=== PATIENT | female | born 1970 | race Caucasian/White ===

== ENCOUNTER 2017-06-30 14:01 | Observation (INO) ==
[2017-06-30 14:30] LABS: Basophils % 0.3 %; Hematocrit 40.7 % (35.3-44.9); Hemoglobin 13.4 g/dL (11.5-15.4); Immature Granulocytes % 1.3 % (0-4); Lymphocytes % 30.6 %; Mean Corpuscular HGB Conc 32.9 g/dL (31.6-35.5); Mean Corpuscular Hemoglobin 28.6 pg (28.0-33.3); Mean Corpuscular Volume 86.8 fL (83.0-100.0); Mean Platelet Volume 10.2 fL (9.4-12.4); Monocytes # 0.9 K/mcL (0.0-1.3); Monocytes % 7.9 %; Neutrophils # 7.1 K/mcL (1.6-8.9); Nucleated Red Blood Cells 0.2 /100 WBC (0); Platelet Count 303 K/mcL (140-400); Red Blood Count 4.69 M/mcL (3.82-4.97); Red Cell Distribution Width 13.2 % (11.5-14.5); Segmented Neutrophils % 59.9 %
[2017-06-30 14:31] LABS: Lymphocytes # 3.6 K/mcL (0.6-4.6)
[2017-06-30 14:36] LABS: Prothrombin Time 10.4 Seconds (9.4-12.1)
[2017-06-30 14:39] LABS: Activated Partial Thrombo Time 22.5 Seconds (26.0-36.0)
[2017-06-30 14:52] LABS: BUN/Creatinine Ratio 23 (6-26); Blood Urea Nitrogen 22 mg/dL (6-20); Calcium 9.2 mg/dL (8.6-10.3); Carbon Dioxide 27 mEq/L (23-29); Chloride 107 mEq/L (98-107); Glucose 95 mg/dL (70-105); Osmolality,Calculated 295 (280-300); Potassium 3.6 mEq/L (3.5-5.1); Sodium 141 mEq/L (136-145); eGFR For African Americans > 60 (> 60); eGFR For Non-African Americans > 60 (> 60)
[2017-06-30 14:53] LABS: Troponin I < 0.03 ng/mL (< 0.04)
[2017-06-30 15:06] LABS: Thyroid Stimulating Hormone 0.684 mcIU/mL (0.340-5.600)
--- NOTE | 2017-06-30 15:26 | Emergency Department Note ---
Disposition Clinical Impression: Symptomatic bradycardia Disposition: Admitted As Inpatient Referrals: Harvey Huitron MD [Primary Care Provider] - General Adult HPI - General Chief complaint: ED Arrhythmia/Palpitations Stated complaint: bradycardia Time Seen by Provider: 06/30/17 14:09 Source: patient Limitations: no limitations - History of Present Illness Pain Scale: 8 - Related Data Previous Rx's Medication Instructions Recorded Hydrocodone/Acetaminophen [[place] 1 each PO TID #7 tablet 11/27/14 5-325 Tablet] Levofloxacin [Levaquin] 750 mg PO DAILY #7 tablet 03/28/16 Azithromycin [Zithromax] 0 tab PO DAILY #6 tablet 10/30/16 Clindamycin [Cleocin] 450 mg PO TID #63 capsule 01/31/17 Allergies Allergy/AdvReac Type Severity Reaction Status Date / Time ciprofloxacin [From Cipro] Allergy Anaphylaxis Verified 03/26/16 14:05 Hydromorphone [From Dilaudid] Allergy Anaphylaxis Verified 01/30/17 23:14 Sulfa (Sulfonamide Allergy Itching Verified 01/30/17 23:14 Antibiotics) Past Medical History - Past Medical History Medical history: Reports: asthma, coronary artery disease, hyperlipidemia, thyroid disease Surgical history: Reports: Psychiatric history: Reports: depression 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 We had independent face-to- face examination and discussion. The patient was seen with the emergency medicine resident Dr. Jaun Guillen I examined this patient and my medical decision-making was reviewed with the Resident Physician/COMMERCIAL LINES ACCOUNT MANAGER/PA. I agree with the documented findings, disposition and treatment plan as described except to the extent set forth below. Briefly: 47-year-old female history of thyroid. Presents with 1 week of worsening weakness which might pass out with her primary care physician's office was started on Levaquin for "bronchitis". Patient arrives bradycardic and symptomatic heart rate about [address]-T changes. 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 We have provided 30 minutes of critical care service for this patient Time: 15:25 Vital Signs Temperature 98.3 F 06/30/17 14:03 Pulse Rate 46 06/30/17 14:03 Respiratory Rate 16 06/30/17 14:03 Blood Pressure 145/108 06/30/17 14:03 O2 Sat by Pulse Oximetry 99 06/30/17 14:03 Temperature 98.3 F 06/30/17 14:03 Pulse Rate 46 06/30/17 14:03 Respiratory Rate 16 06/30/17 14:03 Blood Pressure 145/108 06/30/17 14:03 O2 Sat by Pulse Oximetry 99 06/30/17 14:03 Oxygen Delivery Oxygen Delivery Room Air Medical Decision Making - Lab Data Result diagrams: 06/30/17 14:14 06/30/17 14:14 Lab Results 06/30/17 06/30/17 06/30/17 Range/Units 14:14 14:14 14:14 WBC 11.9 H D (4.3-11.1) K/mcL RBC 4.69 (3.82-4.97) M/mcL Hgb 13.4 (11.5-15.4) g/dL Hct 40.7 (35.3-44.9) % MCV 86.8 (83.0-100.0) fL MCH 28.6 (28.0-33.3) pg MCHC 32.9 (31.6-35.5) g/dL RDW 13.2 (11.5-14.5) % Plt Count 303 (140-400) K/mcL MPV 10.2 (9.4-12.4) fL Immature Gran % 1.3 (0-4) % Seg Neutrophils % 59.9 % Lymphocytes % 30.6 % Monocytes % 7.9 % Eosinophils % 0.0 % Basophils % 0.3 % Neutrophils # 7.1 (1.6-8.9) K/mcL Lymphocytes # 3.6 (0.6-4.6) K/mcL Monocytes # 0.9 (0.0-1.3) K/mcL Eosinophils # 0.0 (0.0-0.6) K/mcL Basophils # 0.0 (0.0-0.2) K/mcL Nucleated RBCs/100 WBC 0.2 H (0) /100 WBC PT 10.4 (9.4-12.1) Seconds INR 1.0 APTT 22.5 L (26.0-36.0) Seconds Sodium 141 (136-145) mEq/L Potassium 3.6 (3.5-5.1) mEq/L Chloride 107 (98-107) mEq/L Carbon Dioxide 27 (23-29) mEq/L BUN 22 H (6-20) mg/dL Creatinine 0.96 (0.60-1.20) mg/dL Est GFR ( Amer) > 60 (> 60) Est GFR (Non-Af Amer) > 60 (> 60) BUN/Creatinine Ratio 23 (6-26) Glucose 95 (70-105) mg/dL Calculated Osmolality 295 (280-300) Calcium 9.2 (8.6-10.3) mg/dL Troponin I < 0.03 (< 0.04) ng/mL TSH 0.684 (0.340-5.600) mcIU/mL
--- NOTE | 2017-06-30 16:22 | Emergency Department Note ---
Disposition Clinical Impression: Symptomatic bradycardia Disposition: Admitted As Inpatient Condition: Fair Referrals: Harvey Huitron MD [Primary Care Provider] - Forms: ED Satisfaction Letter Time of Disposition: 16:24 General Adult HPI - General Chief complaint: ED Arrhythmia/Palpitations Stated complaint: bradycardia Time Seen by Provider: 06/30/17 14:09 Source: patient Mode of arrival: EMS Limitations: no limitations Nursing Notes Reviewed: Yes Vital Signs Reviewed: Yes - History of Present Illness HPI Narrative: Patient is a 47-year-old female with a past medical history of asthma, CAD, HLD , and thyroid disease presenting to the emergency department with a complaint of weakness/lightheadedness has been going on for the past week. The patient was seen by her primary care provider 5 days ago in which she states that she had lab testing done and was diagnosed with bronchitis and started on steroids and Levaquin. The patient states since that time she continues to feel lightheaded and she feels as if when she is up moving around she is going to pass out. She denies any fevers, chills, chest pain, shortness of breath, cough , abdominal pain, nausea, vomiting, diarrhea or any other associated symptoms at this time. She states that she has no history of known bradycardia. Pain Scale: 8 - Related Data Home Medications Medication Instructions Recorded Confirmed Benzonatate [Tessalon] 200 mg PO TID 06/30/17 06/30/17 Cefdinir [Omnicef] 300 mg PO BID 06/30/17 06/30/17 Citalopram [CeleXA] 20 mg PO DAILY 06/30/17 06/30/17 Ergocalciferol (VITAMIN D2) 50,000 units PO QWEEK 06/30/17 06/30/17 [Drisdol (50,000 Unit)] Gabapentin [Neurontin] 300 mg PO TID 06/30/17 06/30/17 Levothyroxine Sodium [Synthroid] 137 mcg PO QAM 06/30/17 06/30/17 Omeprazole [PriLOSEC] 20 mg PO DAILY 06/30/17 06/30/17 Pravastatin Sodium [Pravachol] 40 mg PO HS 06/30/17 06/30/17 Propranolol [Inderal] 20 mg PO DAILY 06/30/17 06/30/17 Torsemide [Torsemide] 10 mg PO DAILY 06/30/17 06/30/17 predniSONE [PredniSONE] 0 mg PO DAILY 06/30/17 06/30/17 Allergies Allergy/AdvReac Type Severity Reaction Status Date / Time ciprofloxacin [From Cipro] Allergy Anaphylaxis Verified 06/30/17 15:52 Hydromorphone [From Dilaudid] Allergy Anaphylaxis Verified 06/30/17 15:52 Sulfa (Sulfonamide Allergy Itching Verified 06/30/17 15:52 Antibiotics) All systems ED: reviewed and negative except as stated. Review of Systems: As Per HPI Constitutional: Reports: weakness. Denies: fever, chills Cardiovascular: Denies: chest pain, palpitations, dyspnea on exertion, syncope Respiratory: Denies: cough, dyspnea, wheezes Gastrointestinal: Denies: abdominal pain, nausea, vomiting, diarrhea Genitourinary: Denies: urgency, dysuria Musculoskeletal: Denies: back pain, neck pain Integumentary: Denies: rash Neurological: Denies: headache Endocrine: Reports: fatigue Past Medical History - Past Medical History Attestation: Yes The following information was validated with the patient. 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 - Social History Smoking Status: Never smoker Smokeless Tobacco Status: No Alcohol use: Reports: none Drug use: Reports: none Physical Exam CONSTITUTIONAL: Well-appearing; well-nourished; A&O X 3, in no apparent distress HEAD: Normocephalic; atraumatic EYES: PERRL, no scleral icterus NOSE: The nose is normal in appearance without rhinorrhea NECK: No JVD or distended neck veins RESP: Normal chest excursion with respiration; breath sounds clear and equal bilaterally; no wheezes, rhonchi, or rales CARD: Regular rhythm, without murmurs, rub or gallop ABD: Non-distended; non-tender, soft, without rigidity, rebound or guarding,no pulsatile mass CHEST: No pain with palpation SKIN: Normal for age and race; warm and dry without diaphoresis ; no apparent lesions EXTREMITIES: Pulses are 2 plus and equal times 4 extremities, no peripheral edema or calf muscle pain NEURO: Patient is AO 3. GCS of 15. No focal neuro deficits on exam. - General Limitations: no limitations General appearance: alert, in no apparent distress Course Course Narrative: Plan at this time is to perform workup of the patient including a EKG, troponin and chest x-ray. Upon review of patient's prior visit she does not have this bradycardia her rate is normally in the 70s. Her EKG mainly shows sinus bradycardia which is new when compared to her old EKG. we will also order orthostatic vitals. - Reevaluation(s) Reevaluation #1: Patient's workup was essentially normal except for sinus bradycardia as found on EKG. Plan at this time is to admit the patient for symptomatic bradycardia. I discussed the patient's case with Dr. Nguyen and he will see the patient and consult. Patient was accepted by the hospitalist Dr. Perez. Time: 16:24 Vital Signs Temperature 98.3 F 06/30/17 14:03 Pulse Rate 46 06/30/17 14:03 Respiratory Rate 16 06/30/17 14:03 Blood Pressure 145/108 06/30/17 14:03 O2 Sat by Pulse Oximetry 99 06/30/17 14:03 Temperature 98.3 F 06/30/17 14:03 Pulse Rate 46 06/30/17 14:03 Respiratory Rate 16 06/30/17 14:03 Blood Pressure 145/108 06/30/17 14:03 O2 Sat by Pulse Oximetry 99 06/30/17 14:03 Oxygen Delivery Oxygen Delivery Room Air Medical Decision Making - Medical Records Medical records reviewed: Yes I reviewed the patient's medical records. - Lab Data Lab results reviewed: Yes I reviewed the patient's lab results. Result diagrams: 06/30/17 14:14 06/30/17 14:14 Lab Results 06/30/17 06/30/17 06/30/17 Range/Units 14:14 14:14 14:14 WBC 11.9 H D (4.3-11.1) K/mcL RBC 4.69 (3.82-4.97) M/mcL Hgb 13.4 (11.5-15.4) g/dL Hct 40.7 (35.3-44.9) % MCV 86.8 (83.0-100.0) fL MCH 28.6 (28.0-33.3) pg MCHC 32.9 (31.6-35.5) g/dL RDW 13.2 (11.5-14.5) % Plt Count 303 (140-400) K/mcL MPV 10.2 (9.4-12.4) fL Immature Gran % 1.3 (0-4) % Seg Neutrophils % 59.9 % Lymphocytes % 30.6 % Monocytes % 7.9 % Eosinophils % 0.0 % Basophils % 0.3 % Neutrophils # 7.1 (1.6-8.9) K/mcL Lymphocytes # 3.6 (0.6-4.6) K/mcL Monocytes # 0.9 (0.0-1.3) K/mcL Eosinophils # 0.0 (0.0-0.6) K/mcL Basophils # 0.0 (0.0-0.2) K/mcL Nucleated RBCs/100 WBC 0.2 H (0) /100 WBC PT 10.4 (9.4-12.1) Seconds INR 1.0 APTT 22.5 L (26.0-36.0) Seconds Sodium 141 (136-145) mEq/L Potassium 3.6 (3.5-5.1) mEq/L Chloride 107 (98-107) mEq/L Carbon Dioxide 27 (23-29) mEq/L BUN 22 H (6-20) mg/dL Creatinine 0.96 (0.60-1.20) mg/dL Est GFR ( Amer) > 60 (> 60) Est GFR (Non-Af Amer) > 60 (> 60) BUN/Creatinine Ratio 23 (6-26) Glucose 95 (70-105) mg/dL Calculated Osmolality 295 (280-300) Calcium 9.2 (8.6-10.3) mg/dL Troponin I < 0.03 (< 0.04) ng/mL TSH 0.684 (0.340-5.600) mcIU/mL - Radiology Data Radiology results reviewed: Yes I reviewed the patient's radiology results. Chest X-Ray 06/30/17 14:10 IMPRESSION: 1. No active pulmonary disease. D/ / Carter Martinez MD / Carter Martinez MD Interpreting Provider: Carter Martinez MD - EKG Data EKG #1 EKG attestation: Yes I reviewed and interpreted this EKG. EKG results narrative: EKG done at 14:09 shows sinus bradycardia at a rate of 45 bpm. Normal axis. CO is 121, QRS is 100, QT is 4 and 82 and QTc is 436 and these are within normal limits. Patient does have T-wave inversions in several leads however these are unchanged when compared to the EKG done on March 282015.
--- NOTE | 2017-06-30 17:49 | Internal Med History&Physical ---
Date of Encounter: 06/30/17 Time of Encounter: 15:00 Assessment and Plan (1) Symptomatic bradycardia Current visit: Yes Status: Acute Patient with history of coronary arterial disease and hypertension who presents with symptomatic bradycardia. Will monitor on telemetry and pacer pads placed Cardiology has been consulted and appreciate recommendations. (2) Hypothyroid Current visit: Yes Status: Acute TSH 0.684 on admission; continue levothyroxine Qualifiers: Hypothyroidism type: unspecified Qualified Code(s): E03.9 - Hypothyroidism , unspecified (3) GERD (gastroesophageal reflux disease) Current visit: Yes Status: Acute Continue PPI Qualifiers: Esophagitis presence: esophagitis presence not specified Qualified Code(s) : K21.9 - Gastro-esophageal reflux disease without esophagitis (4) HLD (hyperlipidemia) Current visit: Yes Status: Acute Continue statin Qualifiers: Hyperlipidemia type: unspecified Qualified Code(s): E78.5 - Hyperlipidemia , unspecified (5) Mood disorder Current visit: Yes Status: Acute Continue SSRI (6) DVT prophylaxis Current visit: Yes Status: Acute Subcutaneous heparin Internal Medicine - H&P: HPI Chief complaint: Chest tightness/shortness of breath Admitted From: Home Plans for Post Hospital Care: Home History of present illness: Patient is a 47-year-old female with past medical history significant for coronary artery disease, hypertension, hyperlipidemia and hypothyroid who presents to the ER on 06/30/17 due to chest tightness, fatigue and dizziness. Patient reports that her symptoms of been present for the last several days. She states that she has been fatigued with dizziness for the last 3-4 days, chest tightness for the last 2 days and shortness of breath for the last day. She decided to come into the ER for evaluation. The ER, patient was found to be bradycardic with a heart rate in the 40s. Cardiology was consulted from the ER and she will be admitted to medical surgical floor for management of bradycardia. Past Med Surg Social Fam HX - Past Medical History Medical history: asthma, coronary artery disease, hyperlipidemia, thyroid disease Psychiatric history: depression - Past Surgical History Surgical History: - Social History Smoking Status: Never smoker Smokeless Tobacco Status: No Alcohol use: none Drug use: none Internal Medicine - H&P: Meds Benzonatate [Tessalon] 200 mg PO TID 06/30/17 [History] Cefdinir [Omnicef] 300 mg PO BID 06/30/17 [History] Citalopram [CeleXA] 20 mg PO DAILY 06/30/17 [History] Ergocalciferol (VITAMIN D2) [Drisdol (50,000 Unit)] 50,000 units PO QWEEK [History] Gabapentin [Neurontin] 300 mg PO TID 06/30/17 [History] Levothyroxine Sodium [Synthroid] 137 mcg PO QAM 06/30/17 [History] Omeprazole [PriLOSEC] 20 mg PO DAILY 06/30/17 [History] Pravastatin Sodium [Pravachol] 40 mg PO HS 06/30/17 [History] Propranolol [Inderal] 20 mg PO DAILY 06/30/17 [History] Torsemide [Torsemide] 10 mg PO DAILY 06/30/17 [History] predniSONE [PredniSONE] 0 mg PO DAILY 06/30/17 [History] 3 Allergy/AdvReac Type Severity Reaction Status Date / Time ciprofloxacin [From Cipro] Allergy Anaphylaxis Verified 06/30/17 15:52 Hydromorphone [From Dilaudid] Allergy Anaphylaxis Verified 06/30/17 15:52 Sulfa (Sulfonamide Allergy Itching Verified 06/30/17 15:52 Antibiotics) All Systems PM: A 10-system review of systems was performed and is negative for pertinent findings except as documented above in the HPI. - Constitutional Vitals: Temp Pulse Resp BP Pulse Ox 98.3 F 44 18 121/66 95 06/30/17 14:03 06/30/17 16:45 06/30/17 16:21 06/30/17 16:45 06/30/17 16:21 General appearance: Present: A&O X 3, no acute distress, obese - Head Head exam: Present: normocephalic - Eye Eye exam: Present: normal appearance - ENT ENT exam: Present: mucous membranes moist - Respiratory Respiratory exam: Present: CTAB. Absent: accessory muscle use, rales, rhonchi, wheezes - Cardiovascular Cardiovascular exam: Present: bradycardia - GI/Abdominal GI/Abdominal exam: Present: normal bowel sounds, soft, no peritoneal signs. Absent: distended, tenderness - Extremities Exam Extremities exam: Absent: pedal edema - Neurological Exam Neurological exam: Present: oriented X3 - Psychiatric Psychiatric exam: Present: normal mood - Skin Skin exam: Present: normal color Internal Med - H&P Results - Labs CBC & Chem 7: 06/30/17 14:14 06/30/17 14:14
[2017-06-30] MEDS ORDERED: Naloxone 0.4 MG/ML INJ IVP PRN (17:56)
[2017-06-30] MEDS: *HR* Heparin 5,000 UNIT/ML VIAL SQ SCH (21:20)
[2017-06-30] MEDS: Benzonatate 100 MG CAPSULE PO SCH (21:20)
[2017-06-30] MEDS: Gabapentin 300 MG CAPSULE PO SCH (21:20)
[2017-06-30] MEDS ORDERED: Acetaminophen 325 MG TABLET PO PRN (21:33)
[2017-06-30] MEDS: Acetaminophen 325 MG TABLET PO PRN (22:22)
[2017-07-01 05:38] LABS: Basophils % 0.3 %; Eosinophils % 0.3 %; Hematocrit 36.7 % (35.3-44.9); Hemoglobin 11.9 g/dL (11.5-15.4); Immature Granulocytes % 1.3 % (0-4); Mean Corpuscular HGB Conc 32.4 g/dL (31.6-35.5); Mean Corpuscular Hemoglobin 28.4 pg (28.0-33.3); Mean Corpuscular Volume 87.6 fL (83.0-100.0); Mean Platelet Volume 10.4 fL (9.4-12.4); Monocytes # 0.8 K/mcL (0.0-1.3); Monocytes % 7.8 %; Neutrophils # 4.3 K/mcL (1.6-8.9); Nucleated Red Blood Cells 0.3 /100 WBC (0); Platelet Count 261 K/mcL (140-400); Red Blood Count 4.19 M/mcL (3.82-4.97); Red Cell Distribution Width 13.3 % (11.5-14.5); Segmented Neutrophils % 41.3 %
[2017-07-01 05:54] LABS: BUN/Creatinine Ratio 23 (6-26); Blood Urea Nitrogen 22 mg/dL (6-20); Calcium 8.3 mg/dL (8.6-10.3); Carbon Dioxide 27 mEq/L (23-29); Chloride 106 mEq/L (98-107); Glucose 91 mg/dL (70-105); Osmolality,Calculated 295 (280-300); Potassium 2.9 mEq/L (3.5-5.1); Sodium 141 mEq/L (136-145); eGFR For African Americans > 60 (> 60); eGFR For Non-African Americans > 60 (> 60)
[2017-07-01] MEDS: *HR* Heparin 5,000 UNIT/ML VIAL SQ SCH ×3 (05:59→20:40)
--- NOTE | 2017-07-01 06:53 | Electrocardiograph Report ---
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
[2017-07-01 07:40] LABS: Chol/HDL Ratio 2.4 (0-4.9); Cholesterol 103 mg/dL (< 200); HDL Cholesterol 43 mg/dL (40-59); LDL Cholesterol,Calculated 25 mg/dL (0-99); Triglycerides 175 mg/dL (< 150)
[2017-07-01 09:01] LABS: Estimated Average Glucose 111 mg/dl; Hemoglobin A1C 5.5 %
[2017-07-01] MEDS: Torsemide 20 MG TABLET PO SCH (09:19)
[2017-07-01] MEDS: Benzonatate 100 MG CAPSULE PO SCH ×3 (09:19→20:39)
[2017-07-01] MEDS: Gabapentin 300 MG CAPSULE PO SCH ×3 (09:19→20:39)
[2017-07-01] MEDS: Acetaminophen 325 MG TABLET PO PRN (09:19)
--- NOTE | 2017-07-01 10:34 | Internal Med Progress Note ---
<Rmoe Finley - Last Filed: 07/01/17 18:46> Date of Encounter: 07/01/17 Time of Encounter: 08:40 - Assessment and plan (1) Mass of hepatic flexure of colon Current Visit: Yes Status: Acute Assessment and plan: Intractable diarrhea with abdominal pain The patient has been having unexplained GI symptoms CT AP shows Circumferential area thickening in the hepatic flexure of the colon suspicious for possible colon cancer. The results were discusssed with the patient GI has been consulted for further workup (2) Symptomatic bradycardia Current Visit: Yes Status: Acute Assessment and plan: Symptomatic bradycardia, likely secondary to BB use The patient is no longer having chest discomfort, SOB, We have consulted cardiology, held Propanolol (3) Urinary retention Current Visit: Yes Status: Acute Assessment and plan: Urinary retention with discomfort We will insert catheter as needed to void bladder (4) Hypothyroid Current Visit: Yes Status: Chronic Assessment and plan: Hypothyroidism, stable Considered as source for bradycardia TSH 0.68, Free T3 2.36, Free T4 1.16 Mildly low, however unlikely to be symptomatic Qualifiers: Hypothyroidism type: unspecified Qualified Code(s): E03.9 - Hypothyroidism , unspecified (5) GERD (gastroesophageal reflux disease) Current Visit: Yes Status: Acute Assessment and plan: Continue omeprazole Qualifiers: Esophagitis presence: esophagitis presence not specified Qualified Code(s) : K21.9 - Gastro-esophageal reflux disease without esophagitis (6) HLD (hyperlipidemia) Current Visit: Yes Status: Acute Assessment and plan: Continue atorvastatin Qualifiers: Hyperlipidemia type: unspecified Qualified Code(s): E78.5 - Hyperlipidemia , unspecified (7) Mood disorder Current Visit: Yes Status: Acute Assessment and plan: Continue home meds of celexa (8) DVT prophylaxis Current Visit: Yes Status: Acute Assessment and plan: Patient is on SQ Heparin - Subjective Interval history: The patient is resting in bed at time of examination. She does say that she has had trouble urinating overnight, and has been unable to go. This started about one day ago. She says it has been associated with minimal pain. Upon further questioning, the patient does state that she has had abdominal pain for quite some time. She says that for the past 2 months has been having significant abdominal pain with diarrhea which has been previously unexplained. She denies any hematochezia or melena. - Constitutional Vitals: Temp Pulse Resp BP Pulse Ox 97.9 F 92 15 117/67 95 07/01/17 07:58 07/01/17 07:58 07/01/17 07:58 07/01/17 07:58 07/01/17 07:58 General appearance: Present: A&O X 3, no acute distress, obese Exam: Gen.: Vitals noted. No acute distress. AAOx3 with seemingly mild MRDD HEENT: PERRL/EOMI, oropharynx clear, Normocephalic, atraumatic Neck: Supple. No adenopathy. Cardiac: RRR but slow, no murmur, +S1/S2 Pulmonary: CTA bilaterally, no wheezes, rales or rhonchi, equal chest expansion Abdomen: LLQ abdominal tenderness to palpation Back: Nontender throughout. MSK: ROM intact, no joint swelling noted Extremities: no BLE edema, nontender calf, no cyanosis or clubbing Neuro: A&Ox3, moves all extremities, no focal deficits Psych: Appropriate mood and behavior Internal Medicine: Result - Labs CBC & Chem 7: 07/01/17 04:48 07/01/17 04:48 Labs: Short CBC 07/01/17 Range/Units 04:48 WBC 10.3 (4.3-11.1) K/mcL Hgb 11.9 D (11.5-15.4) g/dL Hct 36.7 (35.3-44.9) % Plt Count 261 (140-400) K/mcL Neutrophils # 4.3 (1.6-8.9) K/mcL BMP 07/01/17 04:48 Sodium 141 Potassium 2.9 L Chloride 106 Carbon Dioxide 27 BUN 22 H Creatinine 0.94 Glucose 91 Calcium 8.3 L - ABG Interpretation ABG results: PT/INR, D-dimer PT 10.4 Seconds (9.4-12.1) 06/30/17 14:14 Consult Discharge Plan - Plan Instructions: Hypothyroidism (DC), Bradycardia (DC), Bradycardia (GEN) Referrals: Harvey Huitron MD [Primary Care Provider] - <Kimani Fishman - Last Filed: 07/01/17 19:23> Date of Encounter: 07/01/17 - Assessment and plan (1) Bradycardia, drug induced Current Visit: Yes Status: Acute (2) Hypothyroid Current Visit: Yes Status: Chronic Qualifiers: Hypothyroidism type: acquired Qualified Code(s): E03.9 - Hypothyroidism, unspecified (3) Mass of hepatic flexure of colon Current Visit: Yes Status: Acute (4) GERD (gastroesophageal reflux disease) Current Visit: Yes Status: Acute Qualifiers: Esophagitis presence: without esophagitis Qualified Code(s): K21.9 - Gastro -esophageal reflux disease without esophagitis (5) HLD (hyperlipidemia) Current Visit: Yes Status: Acute Qualifiers: Hyperlipidemia type: unspecified Qualified Code(s): E78.5 - Hyperlipidemia , unspecified (6) Urinary retention Current Visit: Yes Status: Acute - Constitutional Vitals: Temp Pulse Resp BP Pulse Ox 97.7 F 64 15 139/85 97 07/01/17 16:02 07/01/17 16:02 07/01/17 16:02 07/01/17 16:02 07/01/17 16:02 Internal Medicine: Result - Labs CBC & Chem 7: 07/01/17 04:48 07/01/17 04:48 Labs: Short CBC 07/01/17 Range/Units 04:48 WBC 10.3 (4.3-11.1) K/mcL Hgb 11.9 D (11.5-15.4) g/dL Hct 36.7 (35.3-44.9) % Plt Count 261 (140-400) K/mcL Neutrophils # 4.3 (1.6-8.9) K/mcL BMP 07/01/17 04:48 Sodium 141 Potassium 2.9 L Chloride 106 Carbon Dioxide 27 BUN 22 H Creatinine 0.94 Glucose 91 Calcium 8.3 L Urine 07/01/17 Range/Units 13:35 Urine Color Yellow (Yellow) Urine Clarity Clear (Clear) Urine pH 6.5 (5.0-8.0) pH Units Ur Specific [place] 1.014 (1.010-1.025) Urine Protein Negative (Neg-Trace) mg/dL Urine Glucose (UA) Normal (Normal) mg/dL - ABG Interpretation ABG results: PT/INR, D-dimer PT 10.4 Seconds (9.4-12.1) 06/30/17 14:14 - Impressions Impressions Abdomen/Pelvis CT 07/01/17 14:00 IMPRESSION: Circumferential area thickening in the hepatic flexure of the colon suspicious for possible colon cancer. Colonoscopy is recommended for further evaluation. Status post cholecystectomy These results were sent to results communications to be called to a license caregiver D/ / Mahamed Cm MD / Mahamed Cm MD Interpreting Provider: Mahamed Cm MD - Attending Attestation I examined this patient and my medical decision-making was reviewed with the Resident Physician on 07/01/17. I agree with the documented findings, disposition and treatment plan as described except to the extent set forth below. Ms Anthony is currently in observation for abd pain and bradycardia. She remains high risk at this time. Ms Anthony is doing OK. She is still having abd pain. CT shows mass like area in hepatic flexure. No fever or chills. Exam Alert Mild distress Mucus membranes dry Heart reg No wheeze Abd soft - tender RUQ area. I/P 1. Hepatic flexure mass - colonoscopy tomorrow 2. Weight loss 3. Bradycardia due to Inderal Further diagnoses and plan as above.
[2017-07-01 11:09] LABS: Triiodothyronine (T3) Free 2.36 pg/mL (2.50-3.90)
--- NOTE | 2017-07-01 11:13 | Cardiology Consult Note ---
<Anay Valdes - Last Filed: 07/01/17 11:30> Date of Encounter: 07/01/17 Time of Encounter: 09:30 Assessment and Plan (1) Symptomatic bradycardia Current Visit: Yes Status: Acute Per cardiology: -Reports dizziness, fatigue after starting levaquin. -ECG with SB, HR 45. -Telemetry reviewed with average HR 50. -Was on BB for tremors. -Potassium 2.9 today, replaced per primary service. -TTE 09/2012 with LVEF 65%, mild diastolic dysfuction, small muscular VSD with left to right shunt, mildly dilated left atrium, mild TR, no segmental wall motion abnormalities. -09/2012 [facility] with mild, non-obstructive CAD. -Will stop propanolol due to bradycardia. -Continue to monitor telemetry. Discussion w patient/family: The assessment and plan as outlined above was discussed with the patient and/or family members who expressed understanding and agreement. All questions were answered. Thank you for involving us in the care of your patient. Please call with any questions. Discussed and reviewed with . History of Present Illness Consult date: 06/30/17 Requesting physician: Jaun Guillen Consult reason: symptomatic bradycardia Chief complaint: low HR History of present illness: Ms. Anthony is a 47 year old female with a relevant past medical history of hypothyroidism, cervical CA, obesity, GERD, depression, hyperlipidemia, CHF, mild CAD, tremors. Patient presented to [facility] with complaints of low HR at home. Patient reports her home health nurse took her vital signs and noted HR was low and recommended patient be seen in ER. Patient reports was being treated for bronchitis in outpatient setting with levaquin and steroids. Pateint states since starting new medications, she had been dizzy and felt more tired than normal. Reports dizziness and fatigue now. Denies worsening shortness of breath. Denies chest pain/pressure. Past Med Surg Social Fam HX - Past Medical History Attestation: Yes The following information was validated with the patient. Source: patient, old records reviewed Medical history: asthma, coronary artery disease, hyperlipidemia, thyroid disease Psychiatric history: depression - Past Surgical History Surgical History: - Social History Smoking Status: Never smoker Smokeless Tobacco Status: No Alcohol use: none Drug use: none - Family History Father Age: 74 Family Member Ethnicity: Non- Living Status: Still Living Hx Family Cardiac Disorders: Yes Hx Family Respiratory Disorders: No Hx Family Cancer: No Hx Family GI Disorders: No Hx Family Psychosocial Disorders: Yes (depression) Medications and Allergies Benzonatate [Tessalon] 200 mg PO TID 06/30/17 [History] Cefdinir [Omnicef] 300 mg PO BID 06/30/17 [History] Citalopram [CeleXA] 20 mg PO DAILY 06/30/17 [History] Ergocalciferol (VITAMIN D2) [Drisdol (50,000 Unit)] 50,000 units PO QWEEK [History] Gabapentin [Neurontin] 300 mg PO TID 06/30/17 [History] Levothyroxine Sodium [Synthroid] 137 mcg PO QAM 06/30/17 [History] Omeprazole [PriLOSEC] 20 mg PO DAILY 06/30/17 [History] Pravastatin Sodium [Pravachol] 40 mg PO HS 06/30/17 [History] Propranolol [Inderal] 20 mg PO DAILY 06/30/17 [History] Torsemide [Torsemide] 10 mg PO DAILY 06/30/17 [History] predniSONE [PredniSONE] 0 mg PO DAILY 06/30/17 [History] 3 Allergy/AdvReac Type Severity Reaction Status Date / Time ciprofloxacin [From Cipro] Allergy Anaphylaxis Verified 06/30/17 15:52 Hydromorphone [From Dilaudid] Allergy Anaphylaxis Verified 06/30/17 15:52 Sulfa (Sulfonamide Allergy Itching Verified 06/30/17 15:52 Antibiotics) All Systems Review: The remainder of the systems were reviewed and are negative - Constitutional Constitutional: fatigue - Cardiovascular Cardiovascular: as per HPI - Neurological Neurological: dizziness Physical Examination Vital Signs, Last 4 Hours Temp Pulse Resp BP Pulse Ox 07/01/17 07:58 97.9 F 92 15 117/67 95 General: Conversant, No Apparent Distress HEENT: Atraumatic, Normocephaly, Mucus Membranes Moist Neck: No JVD, Normal carotid pulses Cardiac: Reg Rate and Rhythm, Normal S1 and S2, No Murmur Lungs: Normal Breath Sounds, No Wheeze, Rales, Rhonchi Neuro: Alert and responsive, No focal deficits noted Abdomen: Soft, Non-Tender Skin: No rashes noted on visualized skin Musculoskeletal: No Chest Wall Tenderness Extremities: No Clubbing, No Cyanosis, No Edema, Normal Pulses Results 07/01/17 04:48 07/01/17 04:48 Lab Results Impressions Chest X-Ray 06/30/17 14:10 IMPRESSION: 1. No active pulmonary disease. D/ / Carter Martinez MD / Carter Martinez MD Interpreting Provider: Carter Martinez MD Active Medications Acetaminophen (Tylenol) 650 mg PO Q6HR PRN PRN Reason: Pain Stop: 12/30/17 21:34 Last Admin: 07/01/17 09:19 Dose: 650 mg Atorvastatin Calcium (Lipitor) 10 mg PO HS [facility] Stop: 12/30/17 21:01 Last Admin: 06/30/17 21:20 Dose: 10 mg Benzonatate (Tessalon) 200 mg PO TID [facility] Stop: 12/30/17 21:01 Last Admin: 07/01/17 09:19 Dose: 200 mg Citalopram Hydrobromide (Celexa) 20 mg PO DAILY [facility] Stop: 12/31/17 09:01 Last Admin: 07/01/17 09:19 Dose: 20 mg Gabapentin (Neurontin) 300 mg PO TID [facility] Stop: 12/30/17 21:01 Last Admin: 07/01/17 09:19 Dose: 300 mg Heparin Sodium (Porcine) (Heparin) 5,000 unit SQ Q8HCO [facility] Stop: 12/30/17 22:01 Last Admin: 07/01/17 05:59 Dose: 5,000 unit Levothyroxine Sodium (Levothyroxine Sodium) 137 mcg PO QAM [facility] Stop: 12/31/17 09:01 Last Admin: 07/01/17 09:19 Dose: 137 mcg Naloxone HCl (Narcan) 0.4 mg IVP Q2MIN PRN PRN Reason: SEE COMMENTS Stop: 12/30/17 17:57 Omeprazole (Prilosec) 20 mg PO DAILY [facility] PRN Reason: Protocol Stop: 12/31/17 09:01 Last Admin: 07/01/17 09:19 Dose: 20 mg Potassium Chloride (Potassium Chloride) 40 meq PO BID [facility] Stop: 07/01/17 21:01 Last Admin: 07/01/17 09:20 Dose: 40 meq Torsemide (Demadex) 10 mg PO DAILY [facility] Stop: 12/31/17 09:01 Last Admin: 07/01/17 09:19 Dose: 10 mg Laboratory Tests 06/30/17 07/01/17 07/01/17 14:14 04:48 04:48 Hgb 11.9 D Potassium 3.6 2.9 L Creatinine 0.94 Troponin I < 0.03 TSH 0.684 - Imaging and Cardiology Chest Xray: report reviewed Echo: report reviewed Cardiac cath: report reviewed - EKG Interpretation EKG results cardiology: personally reviewed (ECG with sinus bradycardia, HR 45.) , other (Telemetry reviewed with average HR previous 12 hours noted to be 50, SB. PVCs and PACs noted.) Consult Discharge Plan - Plan Instructions: Hypothyroidism (DC), Bradycardia (DC), Bradycardia (GEN) Referrals: Harvey Huitron MD [Primary Care Provider] - <Tyler Nguyen - Last Filed: 07/01/17 15:56> Date of Encounter: 07/01/17 - Attending Attestation I have personally performed a face to face evaluation on this patient. I have reviewed and agree with the care plan. History and Exam by me shows: 47-year-old female with history of multiple comorbidities presents today with bradycardia associated with weakness. Patient is on propranolol which has been started a few months ago for essential tremors. She has no conduction abnormalities or blocks noticed on telemetry. Her average heart rate is 50 bpm. Last ejection fraction was preserved in 2012 at [place] left heart catheter was unremarkable. Will hold propanolol at this time evaluate her heart rate overnight on telemetry. May consider restarting an alternative versus half her regular dose of propanolol upon discharge with a Holter monitor for follow-up Assessment and Plan Discussion w patient/family: The assessment and plan as outlined above was discussed with the patient and/or family members who expressed understanding and agreement. All questions were answered. Thank you for involving us in the care of your patient. Please call with any questions. History of Present Illness History of present illness: Ms. Anthony is a 47 year old female All Systems Review: The remainder of the systems were reviewed and are negative Physical Examination Vital Signs, Last 4 Hours Temp Pulse Resp BP Pulse Ox 07/01/17 11:58 97.9 F 96 15 121/81 97 Results 07/01/17 04:48 07/01/17 04:48 Lab Results 07/01/17 07/01/17 07/01/17 04:48 04:48 10:14 WBC 10.3 Hgb 11.9 D Hct 36.7 Plt Count 261 Sodium 141 Potassium 2.9 L Chloride 106 Carbon Dioxide 27 BUN 22 H Creatinine 0.94 Glucose 91 Calcium 8.3 L Magnesium 2.1
[2017-07-01 12:45] LABS: Magnesium 2.1 mg/dL (1.6-2.6)
[2017-07-01 14:12] LABS: Bilirubin,Urine Negative (Negative); Blood,Urine Negative (Negative); Clarity,Urine Clear (Clear); Color,Urine Yellow (Yellow); Glucose,Urine (UA) Normal (Normal); Ketones,Urine Negative (Negative); Leukocyte Esterase,Urine Small (Negative); Nitrite,Urine Negative (Negative); PH,Urine 6.5 pH Units (5.0-8.0); Protein,Urine Negative (Neg-Trace); Specific Gravity,Urine 1.014 (1.010-1.025); Urobilinogen,Urine Normal (Normal)
[2017-07-01 14:17] LABS: Bacteria,Urine None Seen per hpf (None-Few); Hyaline Casts,Urine None Seen per lpf (None-Few); Squamous Epithelial Cell,Urine Moderate per lpf (None-Few); WBC,Urine 0-3 per hpf (0-3)
[2017-07-01] MEDS ORDERED: SODIUM CHLORIDE/NAHCO3/KCL/PEG 4,000 ML SOLN.RECON PO ONE (16:00)
[2017-07-01 17:09] LABS: Adenovirus F 40/41 PCR Not detected (Not detect); Astrovirus PCR Not detected (Not detect); C.difficile Toxin A/B by PCR Not detected (Not detect); Campylobacter by PCR Not detected (Not detect); Cryptosporidium by PCR Not detected (Not detect); Cyclospora cayetanensis PCR Not detected (Not detect); E. coli O157 by PCR Not detected (Not detect); Entamoeba histolytica PCR Not detected (Not detect); Enteroaggregative E.coli(EAEC) Not detected (Not detect); Enteropathogenic E.coli(EPEC) Not detected (Not detect); Enterotoxigenic E.coli (ETEC) Not detected (Not detect); Giardia lamblia PCR Not detected (Not detect); Norovirus GI/GII PCR Not detected (Not detect); Plesiomonas shigelloides PCR Not detected (Not detect); Rotavirus A PCR Not detected (Not detect); Salmonella PCR Not detected (Not detect); Sapovirus PCR Not detected (Not detect); Shig/EnteroinvasiveE coli EIEC Not detected (Not detect); Shigalike tox-prod E coli STEC Not detected (Not detect); Vibrio PCR Not detected (Not detect); Vibrio cholerae PCR Not detected (Not detect); Yersinia enterocolitica PCR Not detected (Not detect)
[2017-07-02] MEDS: *HR* Heparin 5,000 UNIT/ML VIAL SQ SCH ×3 (06:19→21:22)
[2017-07-02 07:31] LABS: Basophils % 0.4 %; Eosinophils # 0.1 K/mcL (0.0-0.6); Eosinophils % 0.8 %; Hematocrit 38.4 % (35.3-44.9); Hemoglobin 12.5 g/dL (11.5-15.4); Immature Granulocytes % 1.2 % (0-4); Lymphocytes % 47.6 %; Mean Corpuscular HGB Conc 32.6 g/dL (31.6-35.5); Mean Corpuscular Hemoglobin 28.3 pg (28.0-33.3); Mean Corpuscular Volume 87.1 fL (83.0-100.0); Mean Platelet Volume 10.1 fL (9.4-12.4); Monocytes # 0.6 K/mcL (0.0-1.3); Monocytes % 7.2 %; Neutrophils # 3.6 K/mcL (1.6-8.9); Platelet Count 236 K/mcL (140-400); Red Blood Count 4.41 M/mcL (3.82-4.97); Red Cell Distribution Width 13.4 % (11.5-14.5); Segmented Neutrophils % 42.8 %
[2017-07-02 07:54] LABS: BUN/Creatinine Ratio 18 (6-26); Blood Urea Nitrogen 18 mg/dL (6-20); Calcium 8.8 mg/dL (8.6-10.3); Carbon Dioxide 29 mEq/L (23-29); Chloride 103 mEq/L (98-107); Glucose 89 mg/dL (70-105); Osmolality,Calculated 289 (280-300); Potassium 3.6 mEq/L (3.5-5.1); Sodium 139 mEq/L (136-145); eGFR For African Americans > 60 (> 60); eGFR For Non-African Americans > 60 (> 60)
[2017-07-02] MEDS: Torsemide 20 MG TABLET PO SCH (10:06)
[2017-07-02] MEDS: Benzonatate 100 MG CAPSULE PO SCH ×3 (10:07→21:22)
[2017-07-02] MEDS: Gabapentin 300 MG CAPSULE PO SCH ×3 (10:08→21:22)
--- NOTE | 2017-07-02 10:26 | Cardiology Progress Note ---
Date of Encounter: 07/02/17 Time of Encounter: 08:30 Assessment and Plan (1) Symptomatic bradycardia Current Visit: Yes Status: Acute Per cardiology: -Reports dizziness, fatigue after starting levaquin. Denies dizziness today. -Reports feeling generally weak. -ECG with SB, HR 45. -Telemetry reviewed with average HR 51. -Was on BB for tremors, now off. -TTE 09/2012 with LVEF 65%, mild diastolic dysfuction, small muscular VSD with left to right shunt, mildly dilated left atrium, mild TR, no segmental wall motion abnormalities. -09/2012 [facility] with mild, non-obstructive CAD. -Now with concerning findings per CT abdomen. -Per discussion with , cardiology will sign off. Recommend holter monitor at discharge, ordered. -Will set up outpatient cardioloy follow up. Discussion w patient/family: The assessment and plan as outlined above was discussed with the patient and/or family members who expressed understanding and agreement. All questions were answered. Thank you for involving us in the care of your patient. Please call with any questions. Discussed and reviewed with . Subjective Principal diagnosis: bradycardia, abdominal pain. Interval history: Patient reports not feeling well today, states she feels weak. Denies dizziness this morning. Objective Vital Signs, Last 4 Hours Temp Pulse Resp BP Pulse Ox 07/02/17 07:00 97.5 F L 48 15 116/72 96 General: Conversant, No Apparent Distress HEENT: Atraumatic, Normocephaly, Mucus Membranes Moist Neck: No JVD, Normal carotid pulses Cardiac: Reg Rate and Rhythm, Normal S1 and S2, No Murmur Lungs: Normal Breath Sounds, No Wheeze, Rales, Rhonchi Neuro: Alert and responsive, No focal deficits noted Abdomen: Soft, Non-Tender Skin: No rashes noted on visualized skin Musculoskeletal: No Chest Wall Tenderness Extremities: No Clubbing, No Cyanosis, No Edema, Normal Pulses Results 07/02/17 06:50 07/02/17 06:50 Lab Results Impressions Abdomen/Pelvis CT 07/01/17 14:00 IMPRESSION: Circumferential area thickening in the hepatic flexure of the colon suspicious for possible colon cancer. Colonoscopy is recommended for further evaluation. Status post cholecystectomy These results were sent to results communications to be called to a license caregiver D/ / Mahamed Cm MD / Mahamed Cm MD Interpreting Provider: Mahamed Cm MD Active Medications Acetaminophen (Tylenol) 650 mg PO Q6HR PRN PRN Reason: Pain Stop: 12/30/17 21:34 Last Admin: 07/01/17 09:19 Dose: 650 mg Atorvastatin Calcium (Lipitor) 10 mg PO HS [facility] Stop: 12/30/17 21:01 Last Admin: 07/01/17 20:39 Dose: 10 mg Benzonatate (Tessalon) 200 mg PO TID [facility] Stop: 12/30/17 21:01 Last Admin: 07/02/17 10:07 Dose: 200 mg Citalopram Hydrobromide (Celexa) 20 mg PO DAILY [facility] Stop: 12/31/17 09:01 Last Admin: 07/02/17 10:06 Dose: 20 mg Gabapentin (Neurontin) 300 mg PO TID [facility] Stop: 12/30/17 21:01 Last Admin: 07/02/17 10:08 Dose: 300 mg Heparin Sodium (Porcine) (Heparin) 5,000 unit SQ Q8HCO [facility] Stop: 12/30/17 22:01 Last Admin: 07/02/17 06:19 Dose: 5,000 unit Levothyroxine Sodium (Levothyroxine Sodium) 137 mcg PO 0630 [facility] Stop: 12/31/17 09:01 Last Admin: 07/02/17 06:19 Dose: 137 mcg Naloxone HCl (Narcan) 0.4 mg IVP Q2MIN PRN PRN Reason: SEE COMMENTS Stop: 12/30/17 17:57 Omeprazole (Prilosec) 20 mg PO DAILY [facility] PRN Reason: Protocol Stop: 12/31/17 09:01 Last Admin: 07/02/17 10:08 Dose: 20 mg Torsemide (Demadex) 10 mg PO DAILY [facility] Stop: 12/31/17 09:01 Last Admin: 07/02/17 10:06 Dose: 10 mg Laboratory Tests 07/02/17 07/02/17 06:50 06:50 Hgb 12.5 Potassium 3.6 Creatinine 0.99 - Imaging and Cardiology Chest Xray: report reviewed Echo: report reviewed Cardiac cath: report reviewed - EKG Interpretation EKG results cardiology: other (Telemetry reviewed with average HR previous 12 hours noted to be 51, SB. No events noted.) Consult Discharge Plan - Plan Instructions: Hypothyroidism (DC), Bradycardia (DC), Bradycardia (GEN) Referrals: Harvey Huitron MD [Primary Care Provider] -
--- NOTE | 2017-07-02 11:24 | Gastroenterology Consult Note ---
<Laurent,Rome Becerra - Last Filed: 07/02/17 11:21> Date of Encounter: 07/02/17 Time of Encounter: 10:30 - Assessment and plan (1) Mass of hepatic flexure of colon Status: Acute Assessment and plan: CT A/P with circumferential area thickening in the hepatic flexure of the colon suspicious for colon cancer. Plan for colonoscopy today, keep patient NPO. Check CEA. (2) GERD (gastroesophageal reflux disease) Status: Acute Assessment and plan: Continue PPI. Qualifiers: Esophagitis presence: without esophagitis Qualified Code(s): K21.9 - Gastro -esophageal reflux disease without esophagitis (3) Symptomatic bradycardia Status: Acute - Time Spent With Patient Total time spent is greater than 50% in coordination of care (as documented) at patient's floor/unit and/or counseling patient: GI History of Present Illness - Data of Consult Patient: new to practice Consult date: 07/02/17 Requesting Physician: Kimani Fishman DO - Consult Narrative Reason for consult: Mass at hepatic flexure History of present illness: Ms. Anthony is a 47 year old female with PMHx of asthma, CAD, HLD, HTN, and GERD who presented to the ED on 06/30 with c/o chest tightness, fatigue, and dizziness that had been present for several days. She was found to be bradycardic with HR in the 40s. She also reported RUQ abdominal pain for the past 2 months with associated diarrhea. She denies melena or hematochezia. She denies any change to stool caliber. CT A/P with circumferential area thickening in the hepatic flexure of the colon suspicious for colon cancer. Procedures: EGD 07/16/2012 Dr. Gonzales: Medium size hiatal hernia, acute gastritis and duodenitis. Colonoscopy 03/08/2010 Dr. Mcelroy: Nonbleeding internal hemorrhoids otherwise normal NSAIDs: None Anticoagulation: None Past Med Surg Social Fam HX - Past Medical History Medical history: asthma, coronary artery disease, hyperlipidemia, thyroid disease Psychiatric history: depression - Past Surgical History Surgical History: - Social History Smoking Status: Never smoker Smokeless Tobacco Status: No Alcohol use: none Drug use: none - Family History Father Age: 74 Family Member Ethnicity: Non- Living Status: Still Living Hx Family Cardiac Disorders: Yes Hx Family Respiratory Disorders: No Hx Family Cancer: No Hx Family GI Disorders: No Hx Family Psychosocial Disorders: Yes (depression) - Gastrointestinal Gastrointestinal: Present: as per HPI - Constitutional Constitutional: as per HPI - EENT Eyes: as per HPI Ears: Present: as per HPI Nose, mouth and throat: Present: as per HPI - Cardiovascular Cardiovascular ROS: Present: as per HPI - Respiratory Respiratory IM: Present: as per HPI - Genitourinary Genitourinary: Absent: change in color, Urinary frequency - Neurological ROS Neurological GI: Present: as per HPI - Hematologic/Lymphatic Hematologic/Lymphatic pediatric: Present: as per HPI - Musculoskeletal Musculoskeletal ROS GI: Present: as per HPI - Integumentary Integumentary GI: Present: as per HPI - Psychiatric ROS Psychiatric GI: Present: as per HPI - Endocrine Endocrine IM: Present: as per HPI - Constitutional Vitals: Temp Pulse Resp BP Pulse Ox 97.5 F L 48 15 116/72 96 07/02/17 11:19 07/02/17 07:00 07/02/17 07:00 07/02/17 07:00 07/02/17 07:00 General appearance: Present: cooperative, A&O X 3, no acute distress, answers questions appropriately - Head Head exam: Present: atraumatic, normocephalic - Eye Eye exam: Present: normal appearance, sclera anicteric - ENT ENT exam: Present: mucous membranes dry - Neck Neck exam general surgery: Present: normal inspection, trachea midline - Respiratory Respiratory exam: Present: CTAB. Absent: rales, rhonchi - Cardiovascular Cardiovascular exam: Present: RRR, +S1, +S2 - GI/Abdominal GI/Abdominal exam: Present: soft, tenderness (RUQ tenderness with palpation), no peritoneal signs. Absent: distended, firm, guarding - Rectal Rectal exam: Present: deferred - Extremities Exam Extremities exam: Present: warm - Neurological Exam Neurological exam: Present: no focal deficits - Psychiatric Psychiatric exam: Present: normal affect, normal mood - Skin Skin exam: Present: dry, intact, normal color, warm Results - Labs CBC & Chem 7: 07/02/17 06:50 07/02/17 06:50 Labs: Last Result Calcium 8.8 mg/dL (8.6-10.3) 07/02/17 06:50 Troponin I < 0.03 ng/mL (< 0.04) 06/30/17 14:14 Triglycerides 175 mg/dL (< 150) H 07/01/17 04:48 Entire Visit Hgb 12.5 g/dL (11.5-15.4) 07/02/17 06:50 Hct 38.4 % (35.3-44.9) 07/02/17 06:50 PT 10.4 Seconds (9.4-12.1) 06/30/17 14:14 - ABG ABG results: PT/INR, D-dimer PT 10.4 Seconds (9.4-12.1) 06/30/17 14:14 - Impressions Impressions Abdomen/Pelvis CT 07/01/17 14:00 IMPRESSION: Circumferential area thickening in the hepatic flexure of the colon suspicious for possible colon cancer. Colonoscopy is recommended for further evaluation. Status post cholecystectomy These results were sent to results communications to be called to a license caregiver D/ / Mahamed Cm MD / Mahamed Cm MD Interpreting Provider: Mahamed Cm MD Consult Discharge Plan - Plan Instructions: Fosfomycin (By mouth), Topiramate (By mouth), Urinary Tract Infection in Women (DC), Hypothyroidism (DC), Bradycardia (DC), Bradycardia (GEN ) Additional Instructions: Follow-up with PCP in 3-5 days, Follow-up with Neurology and Cardiology as directed Continue Fosfomycin every 48 hours for 3 total doses Discontinue propanolol, start topiramate Continue other medications as prescribed Wear holter monitor as directed by cardiology Return to ED for similar symptoms, loss or changes in consciousness, slow heart rate, chest pain, shortness of breath, fever or worsening urinary symptoms Referrals: Harvey Huitron MD [Primary Care Provider] - 07/10/17 1:45 pm [place] Laurent, INTERNATIONAL OPERATIONS MANAGER [Advanced Practice Nurse] - (OFFICE WILL CALL YOU WITH APPOINTMENT DATE AND TIME, IF NO RETURN CALL BY JULY 08 PLEAE CALL OFFICE FOR FOLLOW UP APPOINTMENT SHER) Martha Watson MD [Partnered Physician] - (OFFICE WILL CALL YOU WITH APPPOINTMENT DAY AND TIME, IF NO RETURN CALL TO YOU BY SATURDAY 07/08 PLEASE CALL OF FOR INFORMATION REGARDING FOLLOW UP APPOINTMENT) Prescriptions: Fosfomycin Tromethamine [Monurol] 3 gm PO Q48H #2 packet Topiramate [Topamax] 25 mg PO DAILY #30 tablet <Dariusz Thao - Last Filed: 07/21/17 07:42> Date of Encounter: 07/02/17 - Time Spent With Patient Total time spent is greater than 50% in coordination of care (as documented) at patient's floor/unit and/or counseling patient: GI History of Present Illness - Data of Consult Requesting Physician: Kimani Fishman DO - Consult Narrative History of present illness: Ms. Anthony is a 47 year old female - Constitutional Vitals: Temp Pulse Resp BP Pulse Ox 97.7 F 68 16 109/67 94 07/04/17 10:38 07/04/17 10:38 07/04/17 10:38 07/04/17 10:38 07/04/17 10:38 Results - Labs CBC & Chem 7: 07/04/17 05:24 07/04/17 05:24 Labs: Last Result Calcium 9.0 mg/dL (8.6-10.3) 07/04/17 05:24 Troponin I < 0.03 ng/mL (< 0.04) 06/30/17 14:14 Triglycerides 175 mg/dL (< 150) H 07/01/17 04:48 Entire Visit Hgb 11.8 g/dL (11.5-15.4) 07/04/17 05:24 Hct 36.1 % (35.3-44.9) 07/04/17 05:24 PT 10.4 Seconds (9.4-12.1) 06/30/17 14:14 Carcinoembryonic Ag 1.1 ng/mL (Less than 5.0) 07/02/17 11:55 - ABG ABG results: PT/INR, D-dimer PT 10.4 Seconds (9.4-12.1) 06/30/17 14:14 - Attending Attestation is a pleasant 46-year-old female who comes in with any change in bowel habits she has never abnormal CT with some narrowing suggested at the hepatic flexure area in [place]. This could be due to spasm or actually due to related to to radiation. I do not see any significant any any enlarged lymph nodes but will proceed with a colonoscopy tomorrow morning and make further recommendations after that. I examined this patient and my medical decision-making was reviewed with the Resident Physician. I agree with the documented findings, disposition and treatment plan as described except to the extent set forth below.
[2017-07-02] MEDS ORDERED: Propofol 500 MG/50 ML INFUS..BTL ONE (12:01)
[2017-07-02] MEDS ORDERED: Lidocaine -MPF 2% 2 ML VIAL ONE (12:06)
--- NOTE | 2017-07-02 13:00 | Anesthesia Evaluation PreOp ---
Date of Encounter: 07/02/17 Time of Encounter: 13:00 - Past History Planned Operation: Colonoscopy Cardiac History: HTN, Hyperlipidemia, Arrhythmia (Bradycardia...taken off beta efrain) Pulmonary History: Denies Any Significant HX THERAPY SITE COORDINATOR History: Denies Any Significant HX Other Medical History: Thyroid, GERD, Other (Morbid Obesity) Anesthesia History: No Prior Anesthetic Complications : No (Hysterectomy) Alcohol Use: none Drug use: none Medications and Allergies Benzonatate [Tessalon] 200 mg PO TID 06/30/17 [History] Cefdinir [Omnicef] 300 mg PO BID 06/30/17 [History] Citalopram [CeleXA] 20 mg PO DAILY 06/30/17 [History] Ergocalciferol (VITAMIN D2) [Drisdol (50,000 Unit)] 50,000 units PO QWEEK [History] Gabapentin [Neurontin] 300 mg PO TID 06/30/17 [History] Levothyroxine Sodium [Synthroid] 137 mcg PO QAM 06/30/17 [History] Omeprazole [PriLOSEC] 20 mg PO DAILY 06/30/17 [History] Pravastatin Sodium [Pravachol] 40 mg PO HS 06/30/17 [History] Propranolol [Inderal] 20 mg PO DAILY 06/30/17 [History] Torsemide [Torsemide] 10 mg PO DAILY 06/30/17 [History] predniSONE [PredniSONE] 0 mg PO DAILY 06/30/17 [History] 3 Allergy/AdvReac Type Severity Reaction Status Date / Time ciprofloxacin [From Cipro] Allergy Anaphylaxis Verified 06/30/17 15:52 Hydromorphone [From Dilaudid] Allergy Anaphylaxis Verified 06/30/17 15:52 Sulfa (Sulfonamide Allergy Itching Verified 06/30/17 15:52 Antibiotics) Anesthesia Results - Labs 07/02/17 06:50 07/02/17 06:50 - Imaging EKG: report reviewed (SB) Anesthesia Exam Vital Signs/O2 Sat/Glucose, Most Current Temp Pulse Resp BP Pulse Ox 07/02/17 12:53 49 16 138/73 98 07/02/17 11:19 97.5 F L Height: 5'2 Weight: 282 lbs NPO (# of Hours): MN Pain Scale: 0 - HEENT Pupil (Motor): Pupils equal, EOMI Mallampati: III Teeth: Normal Oral Opening: Less than or equal to 3 - THERAPY SITE COORDINATOR LOC: Oriented THERAPY SITE COORDINATOR Motor: Normal RUE, Normal LUE, Normal RLE, Normal LLE, Normal Face THERAPY SITE COORDINATOR Sensory: Normal: RUE, LUE, RLE, LLE, Face - Cardiac Rhythm: Regular Murmur: None JVD: No Carotid Bruit: No - Pulmonary Breath Sounds: bilateral Clear Respiratory Effort: Symmetrical Anesthesia Assess/Plan ASA Score: 3 (MO HTN Hypothyroid) Modified Haim Scale for Level of Consciousness: Cooperative, oriented, and tranquil Anesthetic Plan: MAC Monitoring Plan: Standard Monitors (Discussed MAC, agrees to proceed)
--- NOTE | 2017-07-02 14:38 | Anesthesia Evaluation Post Op ---
Date of Encounter: 07/02/17 Time of Encounter: 13:51 - Vital Signs Vital Signs: Vital Signs/O2 Sat/Glucose, Most Recent Temp Pulse Resp BP Pulse Ox 97.5 F L 49 16 138/73 98 07/02/17 11:19 07/02/17 12:53 07/02/17 12:53 07/02/17 12:53 07/02/17 12:53 - Lungs Lungs: Clear Ascult./Percussion - Airway Airway: Non-obstructed - Cardiovascular Regular Rate, Baseline Rhythm - Mental Status Mental Status: Alert & Oriented, Answers Appropriately, Baseline Status - Pain Pain Scale: 0 Pain Scale used: Numeric (1 - 10) - Nausea Vomiting Nausea Vomiting: Not Present - Hydration Hydration: NPO Notes: 07/02/17 14:37 naac - Discharge PostOp Status: Transfer Patient to floor
--- NOTE | 2017-07-02 16:15 | Internal Med Progress Note ---
<Rome Finley - Last Filed: 07/02/17 17:02> Date of Encounter: 07/02/17 Time of Encounter: 09:15 - Assessment and plan (1) UTI (urinary tract infection) Current Visit: Yes Status: Acute Assessment and plan: Acute cystitis Urine culture has GNR >100K CFU We will start Rocephin for Total of 3 Days course Qualifiers: Urinary tract infection type: acute cystitis Hematuria presence: without hematuria Qualified Code(s): N30.00 - Acute cystitis without hematuria (2) Diplopia Current Visit: Yes Status: Acute Assessment and plan: The patient complains of double vision that is new She has other neurological abnormalities such as tremor, which she has been seen for previously CT of the head did not show intracranial abnormality We will get a neuro consult while the patient is here (3) Mass of hepatic flexure of colon Current Visit: Yes Status: Ruled-out Assessment and plan: Intractable diarrhea with abdominal pain The patient has been having unexplained GI symptoms CT AP shows Circumferential area thickening in the hepatic flexure of the colon suspicious for possible colon cancer. The results were discusssed with the patient GI has been consulted for further workup 07/02/17 GI saw patient, completed colonoscopy There was no significant mass present on scope No significant mass was noted (4) Symptomatic bradycardia Current Visit: Yes Status: Acute Assessment and plan: Symptomatic bradycardia, likely secondary to BB use The patient is no longer having chest discomfort, SOB, We have consulted cardiology, held Propanolol 07/02 The patient continues to have bradycardia, however this is apparently similar to home resting rate We will continue to monitor this without presence of BB Cardiology recommends outpatient follow-up with Holter monitor at [place] (5) Urinary retention Current Visit: Yes Status: Acute Assessment and plan: Urinary retention with discomfort We will insert catheter as needed to void bladder (6) Hypothyroid Current Visit: Yes Status: Chronic Assessment and plan: Hypothyroidism, stable Considered as source for bradycardia TSH 0.68, Free T3 2.36, Free T4 1.16 Mildly low, however unlikely to be symptomatic Qualifiers: Hypothyroidism type: acquired Qualified Code(s): E03.9 - Hypothyroidism, unspecified (7) GERD (gastroesophageal reflux disease) Current Visit: Yes Status: Chronic Assessment and plan: Continue omeprazole Qualifiers: Esophagitis presence: without esophagitis Qualified Code(s): K21.9 - Gastro -esophageal reflux disease without esophagitis (8) HLD (hyperlipidemia) Current Visit: Yes Status: Chronic Assessment and plan: Continue atorvastatin Qualifiers: Hyperlipidemia type: unspecified Qualified Code(s): E78.5 - Hyperlipidemia , unspecified (9) Mood disorder Current Visit: Yes Status: Chronic Assessment and plan: Continue home meds of celexa (10) DVT prophylaxis Current Visit: Yes Status: Acute Assessment and plan: Patient is on SQ Heparin - Subjective Interval history: The patient is resting in bed at time of examination. She had no significant complaints overnight until this morning, when she apparently suffered from double vision. She says this is intermittent, and has not happened before. She is otherwise feeling alright. - Constitutional Vitals: Temp Pulse Resp BP Pulse Ox 97.5 F L 49 16 138/73 98 07/02/17 11:19 07/02/17 12:53 07/02/17 12:53 07/02/17 12:53 07/02/17 12:53 General appearance: Present: A&O X 3, no acute distress, obese Exam: Gen: Vitals noted. No acute distress. AAOx3 with seemingly mild MRDD HEENT: Normocephalic, atraumatic Neck: Supple. No adenopathy. Cardiac: RRR but slow, no murmur, +S1/S2 Pulmonary: CTA bilaterally, no wheezes, rales or rhonchi, equal chest expansion Abdomen: LLQ abdominal tenderness to palpation Back: Nontender throughout. MSK: ROM intact, no joint swelling noted Extremities: no BLE edema, nontender calf, no cyanosis or clubbing Neuro: detailed neuro exam as documented below Psych: Appropriate mood and behavior - Neurological Exam Neurological exam: Present: alert, CN II-XII intact, oriented X3, reflexes normal, no focal deficits, strengths equal and symetr throughout. Absent: pronater drift, facial droop, speech deficit - Expanded Neurological Exam Cranial Nerves: EOM's intact PM: Normal, nystagmus PM: Normal, tongue deviation PM: Normal Cerebellar function: finger to nose: Normal, heel to nelson: Normal, Romberg: Normal Upper motor neuron: pronator drift: Normal Neuro motor strength exam: LUE: 5, RUE: 5, LLE: 5, RLE: 5 DTR: achilles tendon (L): 2+, achilles tendon (R): 2+, brachioradialis (L): 2+, brachioradialis (R): 2+, patellar (L): 2+, patellar (R): 2+, tricep (L): 2+, tricep (R): 2+ Internal Medicine: Result - Labs CBC & Chem 7: 07/02/17 06:50 07/02/17 06:50 Labs: Short CBC 07/02/17 Range/Units 06:50 WBC 8.5 (4.3-11.1) K/mcL Hgb 12.5 (11.5-15.4) g/dL Hct 38.4 (35.3-44.9) % Plt Count 236 (140-400) K/mcL Neutrophils # 3.6 (1.6-8.9) K/mcL BMP 07/02/17 06:50 Sodium 139 Potassium 3.6 Chloride 103 Carbon Dioxide 29 BUN 18 Creatinine 0.99 Glucose 89 Calcium 8.8 - ABG Interpretation ABG results: PT/INR, D-dimer PT 10.4 Seconds (9.4-12.1) 06/30/17 14:14 - Impressions Impressions Head CT 07/02/17 11:28 IMPRESSION: No acute intracranial abnormality. No change from the prior study. D/ / Maxime Grove MD / Maxime Grove MD Interpreting Provider: Maxime Grove MD Consult Discharge Plan - Plan Instructions: Hypothyroidism (DC), Bradycardia (DC), Bradycardia (GEN) Referrals: Harvey Huitron MD [Primary Care Provider] - <Kimani Fishman - Last Filed: 07/02/17 18:43> Date of Encounter: 07/02/17 - Assessment and plan (1) UTI (urinary tract infection) Current Visit: Yes Status: Acute Qualifiers: Urinary tract infection type: acute cystitis Hematuria presence: without hematuria Qualified Code(s): N30.00 - Acute cystitis without hematuria (2) Bradycardia, drug induced Current Visit: Yes Status: Acute (3) Hypothyroid Current Visit: Yes Status: Chronic Qualifiers: Hypothyroidism type: acquired Qualified Code(s): E03.9 - Hypothyroidism, unspecified (4) Mass of hepatic flexure of colon Current Visit: Yes Status: Ruled-out (5) GERD (gastroesophageal reflux disease) Current Visit: Yes Status: Chronic Qualifiers: Esophagitis presence: without esophagitis Qualified Code(s): K21.9 - Gastro -esophageal reflux disease without esophagitis (6) HLD (hyperlipidemia) Current Visit: Yes Status: Chronic Qualifiers: Hyperlipidemia type: mixed hyperlipidemia Qualified Code(s): E78.2 - Mixed hyperlipidemia (7) Urinary retention Current Visit: Yes Status: Acute - Constitutional Vitals: Temp Pulse Resp BP Pulse Ox 97.9 F 71 15 106/66 92 07/02/17 16:00 07/02/17 16:00 07/02/17 16:00 07/02/17 16:00 07/02/17 16:00 Internal Medicine: Result - Labs CBC & Chem 7: 07/02/17 06:50 07/02/17 06:50 Labs: Short CBC 07/02/17 Range/Units 06:50 WBC 8.5 (4.3-11.1) K/mcL Hgb 12.5 (11.5-15.4) g/dL Hct 38.4 (35.3-44.9) % Plt Count 236 (140-400) K/mcL Neutrophils # 3.6 (1.6-8.9) K/mcL BMP 07/02/17 06:50 Sodium 139 Potassium 3.6 Chloride 103 Carbon Dioxide 29 BUN 18 Creatinine 0.99 Glucose 89 Calcium 8.8 - ABG Interpretation ABG results: PT/INR, D-dimer PT 10.4 Seconds (9.4-12.1) 06/30/17 14:14 - Impressions Impressions Head CT 07/02/17 11:28 IMPRESSION: No acute intracranial abnormality. No change from the prior study. D/ / Maxime Grove MD / Maxime Grove MD Interpreting Provider: Maxime Grove MD - Attending Attestation I examined this patient and my medical decision-making was reviewed with the Resident Physician on 07/02/17. I agree with the documented findings, disposition and treatment plan as described except to the extent set forth below. Ms Anthony is currently in observation for bradycardia, diplopia and possible mass in colon. She remains moderate to high risk. Ms Anthony feels OK. She just returned from colonoscopy. No mass found. No fever or chills. Still with visual issues. Exam alert Comfortable Mucus membranes dry Heart reg - sinus wendy Lungs clear Abd soft - RUQ discomfort persist I/P 1. Bradycardia 2. Diplopia - due to nonspecific symptoms will get CT and ask neuro opinion. Anticipate discharge tomorrow. Further diagnoses and plan as above.
--- NOTE | 2017-07-02 17:38 | Neurology - Consult Note ---
Date of Encounter: 07/02/17 Time of Encounter: 17:35 Assessment and Plan (1) Visual changes Current Visit: Yes Status: Acute Differential for the visual changes that Ava has experienced might include perhaps a small pontine infarct, versus migraine phenomena. Neurologic examination however was for the most part normal. I will obtain an MRI scan of the brain to rule out evidence of a pontine infarct. She can follow up with Dr. Watson after discharge regarding the head tremor. It seems that the head tremor diminishes with distraction. And she does not have tremor of the arms. I will reevaluate her tomorrow. History of Present Illness HPI: Ms. Anthony is a 47 year old female who is being seen for neurologic evaluation secondary chief complaint of vision changes. She was admitted to [facility] on 06/30/2017 secondary to chief complaint of feeling lightheaded and presyncopal particularly when she is up moving around. Upon admission to the hospital or her heart rate was in the 40s. She has been taking propranolol as treatment for head tremors. She has been seen for neurologic assessment secondary to complaints of diplopia. However her story has inconsistencies depending on who she with. She told me that her eyes were "going around in circles" and she also describes seeing colors as if she were looking through a kaleidoscope. However she told someone else that she actually was seeing 2. I asked her if she had experienced a headache after the visual changes and she stated that she did. The visual changes lasted about 20 minutes or so. However she denies any numbness or tingling or paresthesias associated. She denied any balance difficulties. Denied any weakness of the arms or legs. Not any new onset specific difficulties. She is not experiencing any further episodes since the initial event. The propranolol has been stopped since admission and currently when I was in the room her heart rate was 67. She is in no acute distress. Past Med Surg Social Fam HX - Past Medical History Medical history: asthma, coronary artery disease, hyperlipidemia, thyroid disease Psychiatric history: depression - Past Surgical History Surgical History: - Social History Smoking Status: Never smoker Smokeless Tobacco Status: No Alcohol use: none Drug use: none - Family History Father Age: 74 Family Member Ethnicity: Non- Living Status: Still Living Hx Family Cardiac Disorders: Yes Hx Family Respiratory Disorders: No Hx Family Cancer: No Hx Family GI Disorders: No Hx Family Psychosocial Disorders: Yes (depression) Medications and Allergies Benzonatate [Tessalon] 200 mg PO TID 06/30/17 [History] Cefdinir [Omnicef] 300 mg PO BID 06/30/17 [History] Citalopram [CeleXA] 20 mg PO DAILY 06/30/17 [History] Ergocalciferol (VITAMIN D2) [Drisdol (50,000 Unit)] 50,000 units PO QWEEK [History] Gabapentin [Neurontin] 300 mg PO TID 06/30/17 [History] Levothyroxine Sodium [Synthroid] 137 mcg PO QAM 06/30/17 [History] Omeprazole [PriLOSEC] 20 mg PO DAILY 06/30/17 [History] Pravastatin Sodium [Pravachol] 40 mg PO HS 06/30/17 [History] Propranolol [Inderal] 20 mg PO DAILY 06/30/17 [History] Torsemide [Torsemide] 10 mg PO DAILY 06/30/17 [History] predniSONE [PredniSONE] 0 mg PO DAILY 06/30/17 [History] 3 Allergy/AdvReac Type Severity Reaction Status Date / Time ciprofloxacin [From Cipro] Allergy Anaphylaxis Verified 06/30/17 15:52 Hydromorphone [From Dilaudid] Allergy Anaphylaxis Verified 06/30/17 15:52 Sulfa (Sulfonamide Allergy Itching Verified 06/30/17 15:52 Antibiotics) All Systems: The remainder of the systems were reviewed and are negative Review of Systems: Review of systems is consistent with the history of present illness and otherwise negative. Physical Examination - Vital Signs Vital Signs: Initial Vital Signs Temp Pulse Resp BP Pulse Ox 98.3 F 46 16 145/108 99 06/30/17 14:03 06/30/17 14:03 06/30/17 14:03 06/30/17 14:03 06/30/17 14:03 - Neurologic Sensorimotor examination: intact Detailed motor examination: grossly full strength in all extremities, other ( She does have a "no-no" head tremor. Interestingly the tremor seems to diminish to some extent when distracted.) Detailed sensory examination: intact Mental Status Examination: awake (She seems to have some minor difficulty with central processing, perhaps on a genetic basis.), alert, oriented to person, oriented to place, oriented to time, follows commands appropriately, answers questions appropriately Cranial nerve examination: PERRL, EOMI, visual anderson intact, sensory to face intact, mastication intact, no facial asymmetry is present, no dysarthria, hearing is intact symmetrically, soft palate elevates bilaterally upon phonation , flexes SCM and trapezius muscles symmetrically with full power, tongue protrudes midline Cerebellar examination: no dysmetria, performs finger to nose and heel to nelson symmetrically without ataxia, no gait ataxia, no truncal ataxia, no difficulty with rapid alternating movements Results - Laboratory Findings CBC and BMP: 07/02/17 06:50 07/02/17 06:50 Abnormal lab findings: Abnormal lab results Nucleated RBCs/100 WBC 0.3 /100 WBC (0) H 07/01/17 04:48 APTT 22.5 Seconds (26.0-36.0) L 06/30/17 14:14 Triglycerides 175 mg/dL (< 150) H 07/01/17 04:48 VLDL Cholesterol, Calc 35 mg/dL (< 31) H 07/01/17 04:48 Free T3 2.36 pg/mL (2.50-3.90) L 07/01/17 10:14 Ur Leukocyte Esterase Small (Negative) H 07/01/17 13:35 Urine Microscopic RBC 5-15 per hpf (0-3) H 07/01/17 13:35 Ur Squamous Epith Cells Moderate per lpf (None-Few) H 07/01/17 13:35 Ur Culture Indicated? YES (NO) A 07/01/17 13:35 Consult Discharge Plan - Plan Instructions: Hypothyroidism (DC), Bradycardia (DC), Bradycardia (GEN) Referrals: Harvey Huitron MD [Primary Care Provider] -
[2017-07-02] MEDS: cefTRIAXone 1,000 MG in Water for inj. (sterile) 20 ML 10 ML IVP SCH (18:18)
[2017-07-02] MEDS: Acetaminophen 325 MG TABLET PO PRN (21:35)
[2017-07-03 06:12] LABS: Basophils % 0.5 %; Hematocrit 38.3 % (35.3-44.9); Hemoglobin 12.5 g/dL (11.5-15.4); Immature Granulocytes % 1.2 % (0-4); Lymphocytes % 42.7 %; Mean Corpuscular HGB Conc 32.6 g/dL (31.6-35.5); Mean Corpuscular Hemoglobin 28.5 pg (28.0-33.3); Mean Corpuscular Volume 87.4 fL (83.0-100.0); Mean Platelet Volume 9.9 fL (9.4-12.4); Platelet Count 246 K/mcL (140-400); Red Blood Count 4.38 M/mcL (3.82-4.97); Red Cell Distribution Width 13.4 % (11.5-14.5); Segmented Neutrophils % 47.6 %
[2017-07-03 06:13] LABS: Eosinophils # 0.1 K/mcL (0.0-0.6); Lymphocytes # 3.5 K/mcL (0.6-4.6); Monocytes # 0.6 K/mcL (0.0-1.3); Neutrophils # 3.9 K/mcL (1.6-8.9); Nucleated Red Blood Cells 0.2 /100 WBC (0)
[2017-07-03] MEDS: *HR* Heparin 5,000 UNIT/ML VIAL SQ SCH ×3 (06:23→21:03)
[2017-07-03 06:28] LABS: BUN/Creatinine Ratio 18 (6-26); Blood Urea Nitrogen 17 mg/dL (6-20); Calcium 8.6 mg/dL (8.6-10.3); Carbon Dioxide 28 mEq/L (23-29); Chloride 104 mEq/L (98-107); Glucose 103 mg/dL (70-105); Osmolality,Calculated 288 (280-300); Potassium 3.3 mEq/L (3.5-5.1); Sodium 138 mEq/L (136-145); eGFR For African Americans > 60 (> 60); eGFR For Non-African Americans > 60 (> 60)
[2017-07-03] MEDS: Torsemide 20 MG TABLET PO SCH (08:21)
[2017-07-03] MEDS: Acetaminophen 325 MG TABLET PO PRN (08:22)
[2017-07-03] MEDS: cefTRIAXone 1,000 MG in Water for inj. (sterile) 20 ML 10 ML IVP SCH (08:23)
[2017-07-03] MEDS: Gabapentin 300 MG CAPSULE PO SCH ×3 (08:23→21:03)
[2017-07-03] MEDS: Benzonatate 100 MG CAPSULE PO SCH ×3 (08:24→21:03)
--- NOTE | 2017-07-03 09:32 | Neurology Progress Note ---
Date of Encounter: 07/03/17 Time of Encounter: 09:29 Assessment and Plan (1) Visual changes Current Visit: Yes Status: Acute I suspect that the visual changes were ultimately secondary to migraine aura. Ultimately she has no evidence to suspect acute infarct. She still manifests the head tremor which diminishes with distraction. I am increasingly suspicious that the head tremor may be due to psychogenic etiologies versus tic disorder. Might consider a trial of topiramate 25 mg once daily for tremor, then have her follow up with Dr. Watson after discharge. You may discharge her at your discretion. Subjective Principal diagnosis: bradycardia, abdominal pain. Interval history: Chart was reviewed, patient was seen and examined. Case was discussed with the internal medicine staff. She has not experienced any further visual changes. MRI scan of the brain was negative for evidence of acute infarct. She states that she feels better now that she is off the propranolol. She she has no new neurologic symptoms. Objective - Constitutional Vitals: Temp Pulse Resp BP Pulse Ox 98.4 F 72 12 106/68 96 07/03/17 07:24 07/03/17 07:24 07/03/17 07:24 07/03/17 07:24 07/03/17 07:24 General appearance: Present: cooperative, A&O X 3, no acute distress, answers questions appropriately - Neurological Exam Sensorimotor examination: Present: intact Motor Examination: Present: grossly full strength in all extremities, other ( She does have a "no-no" head tremor. Interestingly the tremor seems to diminish to some extent when distracted.) Sensation intact: Present: intact Mental Status Examination: Present: awake (She seems to have some minor difficulty with central processing, perhaps on a genetic basis.), alert, oriented to person, oriented to place, oriented to time, follows commands appropriately, answers questions appropriately Cranial nerve examination: Present: PERRL, EOMI, visual anderson intact, sensory to face intact, mastication intact, no facial asymmetry is present, no dysarthria, hearing is intact symmetrically, soft palate elevates bilaterally upon phonation, flexes SCM and trapezius muscles symmetrically with full power, tongue protrudes midline Cerebellar examination: Present: no dysmetria, performs finger to nose and heel to nelson symmetrically without ataxia, no gait ataxia, no truncal ataxia, no difficulty with rapid alternating movements Results - Laboratory Findings CBC and BMP: 07/03/17 05:41 04/05/18 05:41 Abnormal lab findings: Abnormal lab results Nucleated RBCs/100 WBC 0.2 /100 WBC (0) H 07/03/17 05:41 APTT 22.5 Seconds (26.0-36.0) L 06/30/17 14:14 Potassium 3.3 mEq/L (3.5-5.1) L 07/03/17 05:41 Triglycerides 175 mg/dL (< 150) H 07/01/17 04:48 VLDL Cholesterol, Calc 35 mg/dL (< 31) H 07/01/17 04:48 Free T3 2.36 pg/mL (2.50-3.90) L 07/01/17 10:14 Ur Leukocyte Esterase Small (Negative) H 07/01/17 13:35 Urine Microscopic RBC 5-15 per hpf (0-3) H 07/01/17 13:35 Ur Squamous Epith Cells Moderate per lpf (None-Few) H 07/01/17 13:35 Ur Culture Indicated? YES (NO) A 07/01/17 13:35 Consult Discharge Plan - Plan Instructions: Hypothyroidism (DC), Bradycardia (DC), Bradycardia (GEN) Referrals: Harvey Huitron MD [Primary Care Provider] -
--- NOTE | 2017-07-03 13:03 | Infectious Disease Consult ---
Date of Encounter: 07/03/17 Time of Encounter: 12:59 Assessment and Plan (1) UTI (urinary tract infection) Status: Acute Assessment and plan: Organism Enterobacter Colacae MDRO- sensitive to gentamicin, Levaquin, tigecycline, tobramycin, Bactrim Allergies: Ciprofloxacin- anaphylaxis Sulfa- listed as itching (patient unsure of true reaction) Antibiotics since admission: Rocephin IV Antibiotics prior to admission: Cefdinir and Flagyl Plan: Qualifiers: Urinary tract infection type: acute cystitis Hematuria presence: without hematuria Qualified Code(s): N30.00 - Acute cystitis without hematuria (2) Diarrhea Status: Acute Assessment and plan: Patient continues to have diarrhea - Stable vitals, labs demonstrate occasional hypokalemia possible from GI loss - Fecal lactoferrin (06/24) positive - Outpatient stool culture negative - Inpatient stool culture negative Qualifiers: Diarrhea type: unspecified type Qualified Code(s): R19.7 - Diarrhea, unspecified Infectious Disease HPI - Data of Consult Consult date: 07/03/17 Requesting Physician: Kimani Fishman DO Primary Care Provider: Harvey Huitron MD - Consult Narrative Reason for consult: MRDO Enterobacter History of present illness: Patient is a 47-year-old female presenting to the emergency department with a complaint of weakness/lightheadedness has been going on for the past week.Consult to infectious disease on 07/03/2017 for enterococcus multidrug resistant organism antibiotic recommendations Mrs. Anthony is a 47yo F with a past medical history of essential tremors, asthma, CAD, HLD, and thyroid disease, recently treated for bronchitis and diarrhea in the outpatient setting. She states that roughly 4 months ago she started having some mild shortness of breath cough with sputum production described as white phlegm but without any fevers, chills, diaphoresis, nausea vomiting diarrhea or constipation at that time. This continued until current admission. She also notes that starting 1 month ago she started having diarrhea , multiple stools per day and is not able to cite any specific preceding event. Denies any changes to medications, new medications, new foods or recent infections. The diarrhea continued until she saw her primary care provider on 06/23/2017 where she was evaluated and started on Cefdinir 300mg PO Q12hrs for 8 days treatment of bronchitis and Flagyl 500mg PO Q8hrs x 10days treatment of diarrhea. She states other symptoms upon initial presentation to her PCP included lightheadedness and dizziness and the feeling that she was going to pass out. She states that she is taking her antibiotics as scheduled and followed up with Dr. Huitron on 06/26/2017 with continued diarrhea without improvement and continued sputum production. At that time she is started on prednisone taper for a total of 9 days. At that evaluation labs demonstrated positive for fecal lactoferrin but negative for GI panel. These symptoms continued until 06/30/2017 when she was advised by her home health nurse to come to the emergency department for bradycardia heart rate below 40 and continued symptoms. Upon presentation to the emergency department initial vitals demonstrated afebrile, bradycardia heart rate of 46, appropriate respiratory rate blood pressure in oxygen saturations on room air. Initial laboratory work demonstrated WBC of 11.9, segmented neutrophils of 59.9%, no significant findings on chemistry panel and no initial urinalysis. Chest x-ray demonstrated no active pulmonary disease, patient was not started on antibiotics at the time of admission. 07/01/2017 patient had mild hypokalemia and abnormal urinalysis which demonstrated leukocyte esterase small, 5-15 RBC microscopic, moderate squamous epithelial cells and was sent for culture. Cardiology evaluated the patient for symptomatic bradycardia with recommendations for Holter monitor at discharge. Patient was having right flank pain and out of 10 and continued diarrhea and a CT of the abdomen and pelvis was ordered demonstrating circumferential area thickening in the hepatic flexure of the colon suspicious for possible colon cancer. Stool sample was sent for culture with no detection. Gastroenterology was involved in the patient's case and she underwent colonoscopy on 07/02/2017 where a 5 mm polyp was found in the distal sigmoid colon, diverticulosis and non-bleeding internal hemorrhoids. Patient was started on Rocephin IV for a total of 3 days for treatment of urinary tract infection. Patient was having visual changes described as double vision was seen by neurology who ultimately thought they were secondary to migraine aura. Upon evaluation today ms. Anthony is sitting up in bed in no acute distress. She is alert awake interactive and states that she continues to have diarrhea nonpainful nonbloody just mucus and frequent. She states is the same type of diarrhea she has had for 4 months with little to no improvement. She states she underwent colonoscopy yesterday and a polyp was found. In further discussion sputum production continues better shortness of breath is mildly improved. She continues to feel weak and tired and states that she did have some double vision and was seen by neurology. She denies any fevers, chills, diaphoresis, chest pain or palpitations, syncopal events. She however continues to have right-sided flank pain which she states started today and is painful even to light touch. She also had some urinary retention last evening which she said she had difficulty getting started urinating but now is able to urinate. She states that her urine has a foul odor and is dark yellow-green in color which is abnormal for her. She denies any other treatment for infections outside of the Flagyl and Omnicef she was recently prescribed. She is unsure if she had completed the full dose of both oral medications. She denies any medical or replaced joints in her body. No recent procedures or interventions. When asked about her allergies she states that she has anaphylactic reaction throat swelling to ciprofloxacin. She was unsure if she had itching or any real side effect to Bactrim, she does not eat seafood due to lack of interest. Patient is unsure about her sugar allergy to sulfa medications. CC: Kimani Fishman, DO Past Med Surg Social Fam HX - Past Medical History Medical history: asthma, coronary artery disease, hyperlipidemia, thyroid disease Psychiatric history: depression - Past Surgical History Surgical History: - Social History Smoking Status: Never smoker Smokeless Tobacco Status: No Alcohol use: none Drug use: none - Family History Father Age: 74 Family Member Ethnicity: Non- Living Status: Still Living Hx Family Cardiac Disorders: Yes Hx Family Respiratory Disorders: No Hx Family Cancer: No Hx Family GI Disorders: No Hx Family Psychosocial Disorders: Yes (depression) Infectious Disease-CN:Meds Benzonatate [Tessalon] 200 mg PO TID 06/30/17 [History] Cefdinir [Omnicef] 300 mg PO BID 06/30/17 [History] Citalopram [CeleXA] 20 mg PO DAILY 06/30/17 [History] Ergocalciferol (VITAMIN D2) [Drisdol (50,000 Unit)] 50,000 units PO QWEEK [History] Gabapentin [Neurontin] 300 mg PO TID 06/30/17 [History] Levothyroxine Sodium [Synthroid] 137 mcg PO QAM 06/30/17 [History] Omeprazole [PriLOSEC] 20 mg PO DAILY 06/30/17 [History] Pravastatin Sodium [Pravachol] 40 mg PO HS 06/30/17 [History] Propranolol [Inderal] 20 mg PO DAILY 06/30/17 [History] Torsemide [Torsemide] 10 mg PO DAILY 06/30/17 [History] predniSONE [PredniSONE] 0 mg PO DAILY 06/30/17 [History] 3 Allergy/AdvReac Type Severity Reaction Status Date / Time ciprofloxacin [From Cipro] Allergy Anaphylaxis Verified 06/30/17 15:52 Hydromorphone [From Dilaudid] Allergy Anaphylaxis Verified 06/30/17 15:52 Sulfa (Sulfonamide Allergy Itching Verified 06/30/17 15:52 Antibiotics) primidone AdvReac Agitated Verified 07/03/17 13:25 - Constitutional Constitutional: Present: fatigue, weakness. Absent: anorexia, chills, fever(s) - EENT Eyes: Present: diplopia. Absent: itchy eyes, spots in vision Nose, mouth and throat: Absent: disequilibrium, dizziness, headache(s), sore throat, tongue swelling - Cardiovascular Cardiovascular: Present: dyspnea, lightheadedness. Absent: chest pain, chest pain at rest, edema, leg edema, syncope - Respiratory Respiratory: Present: cough, excessive phlegm production - Gastrointestinal Gastrointestinal: Present: diarrhea. Absent: belching, change in bowel habits, change in stool character, constipation, cramping, nausea, vomiting - Genitourinary Genitourinary: Present: difficulty voiding, urinary hesitancy - Neurological Neurological: Present: tremor(s), weakness. Absent: abnormal gait Exam - Constitutional Vitals: Temp Pulse Resp BP Pulse Ox 98.4 F 72 12 106/68 96 07/03/17 07:24 07/03/17 07:24 07/03/17 07:24 07/03/17 07:24 07/03/17 07:24 Exam: General: Patient alert, awake, oriented 3, interactive, in no acute distress HEENT: Normocephalic, atraumatic, pupils equal reactive to light, nasal cavity patent and open septum median position, oral mucosa moist, uvula midline, neck supple trachea midline no palpable lymphadenopathy, no thyromegaly. Chest: Symmetric bilateral correlating with respiratory effort, effort nonlabored. Cardiac: Regular rate and rhythm, positive S1 and S2. no bruits appreciated bilateral carotids, Radial pulses 2+ bilateral, posterior tibial and dorsal pedal pulses 2+ bilateral. Respiratory: Clear to auscultation all lung anderson Abdomen: Soft, obese, tenderness to light palpation of the right flank, positive bowel sounds, no palpable masses appreciated on examination Extremities: Symmetric bilateral, bilateral lower extremities without erythema or edema patient moving all 4 extremities spontaneously. Neurologic: No focal deficits appreciated on examination. Face symmetric, muscle strength symmetric bilateral upper and lower extremities. Infectious Disease CN: Results - Labs CBC & Chem 7: 07/03/17 05:41 07/03/17 05:41 Cultures: Cultures 07/01/17 13:35 Urine Culture - Preliminary Urine,Clean Catch Enterobacter cloacae MDRO Serology: Serology 07/01/17 07/01/17 Range/Units 14:57 13:35 Urine Color Yellow (Yellow) Urine Clarity Clear (Clear) Urine pH 6.5 (5.0-8.0) pH Units Ur Specific [place] 1.014 (1.010-1.025) Urine Protein Negative (Neg-Trace) mg/dL Urine Glucose (UA) Normal (Normal) mg/dL Urine Ketones Negative (Negative) mg/dL Urine Blood Negative (Negative) Urine Nitrite Negative (Negative) Urine Bilirubin Negative (Negative) Urine Urobilinogen Normal (Normal) mg/dL Ur Leukocyte Esterase Small H (Negative) Urine Microscopic RBC 5-15 H (0-3) per hpf Urine Microscopic WBC 0-3 (0-3) per hpf Ur Squamous Epith Cells Moderate H (None-Few) per lpf Urine Bacteria None Seen (None-Few) per hpf Hyaline Casts None Seen (None-Few) per lpf Ur Culture Indicated? YES A (NO) Stl C. cayetanensis PCR Not detected (Not detect) Stool Rotavirus A PCR Not detected (Not detect) Stl Adenov F 40/41 PCR Not detected (Not detect) Stool Astrovirus (PCR) Not detected (Not detect) Stool Campylobacter PCR Not detected (Not detect) Stl C. diff Tox A/B PCR Not detected (Not detect) Stool Cryptosporidium PCR Not detected (Not detect) Stl Sh Tox Pr E STEC PCR Not detected (Not detect) Stool E coli O157 PCR Not detected (Not detect) Stl Enterotoxigenic E PCR Not detected (Not detect) Stool EPEC (PCR) Not detected (Not detect) Stool EAEC (PCR) Not detected (Not detect) Stl E. histolytica PCR Not detected (Not detect) Stool Giardia Lamblia PCR Not detected (Not detect) Stool Salmonella PCR Not detected (Not detect) Stool Sapovirus (PCR) Not detected (Not detect) Stl P. shigelloides PCR Not detected (Not detect) Stl Shigella/EIEC PCR Not detected (Not detect) St Y.enterocolitica PCR Not detected (Not detect) Stool Vibrio (PCR) Not detected (Not detect) Stl Vibrio cholerae PCR Not detected (Not detect) Stl Norovirus GI/GII PCR Not detected (Not detect) Stl GI Panel (PCR) Com See below Consult Discharge Plan - Plan Instructions: Hypothyroidism (DC), Bradycardia (DC), Bradycardia (GEN) Referrals: Harvey Huitrno MD [Primary Care Provider] - - Attending Attestation I examined this patient and my medical decision-making was reviewed with the Resident Physician. I agree with the documented findings, disposition and treatment plan as described except to the extent set forth below. Patient is a 47 year old woman who has the PMH mentioned below was brought in on the 30 of June with weakness and light headedness, most of the info was taken from medical records. Since arrival, patient has been afebrile, bradycardia with HR of 46, sinus bradycardia and presenting WBC of 11.9 with normal diff, TSH of 0.685 and 2.36 free T3. Urine revealed no pyuria and stool panel was negative. Urine culture grew Enterobacter cloacae and imagining reveal normal MRI of the brain, CT of the abdomen/pelvis revealed thickening of the heatpic flexure concerning for malignancy. EGD was negative but pathology is pending. Patient states she is allergic to Cipro and Bactrim (Cipro caused throat swelling) patient does not recall what sulfa drugs cause. Patient has no idea On Ros patient apparently had urinary retention yesterday that has then resolved. at this point for the UIT, not sure if this is considered even symptomatic vs aysmptomatic bacteruria pt with questionable allergies to sulfa based on the whole story, consider fosfomycin 3 grams packet every 48 hrs x 3 doses. will sign off
[2017-07-03] MEDS: Topiramate 25 MG TABLET PO SCH (14:32)
--- NOTE | 2017-07-03 17:08 | Internal Med Progress Note ---
<Rome Finley - Last Filed: 07/03/17 17:05> Date of Encounter: 07/03/17 Time of Encounter: 09:15 - Assessment and plan (1) UTI (urinary tract infection) Current Visit: Yes Status: Acute Assessment and plan: Acute cystitis, MDRO Enterococcus Urine culture has GNR >100K CFU Resistant to rocephin, and with minimal sensitivities We have consulted ID for input Qualifiers: Urinary tract infection type: acute cystitis Hematuria presence: without hematuria Qualified Code(s): N30.00 - Acute cystitis without hematuria (2) Mass of hepatic flexure of colon Current Visit: Yes Status: Ruled-out Assessment and plan: Intractable diarrhea with abdominal pain The patient has been having unexplained GI symptoms CT AP shows Circumferential area thickening in the hepatic flexure of the colon suspicious for possible colon cancer. The results were discusssed with the patient GI has been consulted for further workup 07/02/17 GI saw patient, completed colonoscopy There was no significant mass present on scope No significant mass was noted 07/03/17 Pain has largely resolved (3) Symptomatic bradycardia Current Visit: Yes Status: Resolved Assessment and plan: Symptomatic bradycardia, likely secondary to BB use The patient is no longer having chest discomfort, SOB, We have consulted cardiology, held Propanolol 07/02 The patient continues to have bradycardia, however this is apparently similar to home resting rate We will continue to monitor this without presence of BB Cardiology recommends outpatient follow-up with Holter monitor at [place] (4) Urinary retention Current Visit: Yes Status: Acute Assessment and plan: Urinary retention with discomfort We will insert catheter as needed to void bladder (5) Hypothyroid Current Visit: Yes Status: Chronic Assessment and plan: Hypothyroidism, stable Considered as source for bradycardia TSH 0.68, Free T3 2.36, Free T4 1.16 Mildly low, however unlikely to be symptomatic Qualifiers: Hypothyroidism type: acquired Qualified Code(s): E03.9 - Hypothyroidism, unspecified (6) GERD (gastroesophageal reflux disease) Current Visit: Yes Status: Chronic Assessment and plan: Continue omeprazole Qualifiers: Esophagitis presence: without esophagitis Qualified Code(s): K21.9 - Gastro -esophageal reflux disease without esophagitis (7) HLD (hyperlipidemia) Current Visit: Yes Status: Chronic Assessment and plan: Continue atorvastatin Qualifiers: Hyperlipidemia type: mixed hyperlipidemia Qualified Code(s): E78.2 - Mixed hyperlipidemia (8) Tremor Current Visit: Yes Status: Chronic Assessment and plan: Chronic resting and intention tremor Seen and evaluated by neurology We will switch the patient to a trial of topiramate per neurology recommendation Follow-up with primary care next week (9) Mood disorder Current Visit: Yes Status: Chronic Assessment and plan: Continue home meds of celexa (10) DVT prophylaxis Current Visit: Yes Status: Acute Assessment and plan: Patient is on SQ Heparin (11) Diplopia Current Visit: Yes Status: Resolved Assessment and plan: The patient complains of double vision that is new She has other neurological abnormalities such as tremor, which she has been seen for previously CT of the head did not show intracranial abnormality We will get a neuro consult while the patient is here - Subjective Interval history: The patient is resting in bed at time of examination. She says that overnight she did still continue to have issues with urination including trouble urinating and burning while voiding. She otherwise has had no acute concerns. - Constitutional Vitals: Temp Pulse Resp BP Pulse Ox 97.6 F 50 18 122/73 96 07/03/17 15:00 07/03/17 15:00 07/03/17 15:00 07/03/17 15:00 07/03/17 07:24 General appearance: Present: A&O X 3, no acute distress, obese Exam: Gen: Vitals noted. No acute distress. AAOx3 with seemingly mild MRDD HEENT: PERRL/EOMI, oropharynx clear, Normocephalic, atraumatic Neck: Supple. No adenopathy. Cardiac: RRR but slow, no murmur, +S1/S2 Pulmonary: CTA bilaterally, no wheezes, rales or rhonchi, equal chest expansion Abdomen: LLQ abdominal tenderness to palpation which is improved from prior Back: Nontender throughout. MSK: ROM intact, no joint swelling noted Extremities: no BLE edema, nontender calf, no cyanosis or clubbing Neuro: moves all extremities, no focal deficits Psych: Appropriate mood and behavior Internal Medicine: Result - Labs CBC & Chem 7: 07/03/17 05:41 07/03/17 05:41 Labs: Short CBC 07/03/17 Range/Units 05:41 WBC 8.1 (4.3-11.1) K/mcL Hgb 12.5 (11.5-15.4) g/dL Hct 38.3 (35.3-44.9) % Plt Count 246 (140-400) K/mcL Neutrophils # 3.9 (1.6-8.9) K/mcL BMP 07/03/17 05:41 Sodium 138 Potassium 3.3 L Chloride 104 Carbon Dioxide 28 BUN 17 Creatinine 0.95 Glucose 103 Calcium 8.6 - ABG Interpretation ABG results: PT/INR, D-dimer PT 10.4 Seconds (9.4-12.1) 06/30/17 14:14 - Impressions Impressions Brain MRI 07/02/17 17:48 IMPRESSION: No acute intracranial abnormality. D/ / Nilton Rodriguez / Nilton Rodriguez Interpreting Provider: Nilton Rodriguez Consult Discharge Plan - Plan Instructions: Hypothyroidism (DC), Bradycardia (DC), Bradycardia (GEN) Referrals: Harvey Huitron MD [Primary Care Provider] - <Kimani Fishman A - Last Filed: 07/03/17 19:49> Date of Encounter: 07/03/17 - Assessment and plan (1) UTI (urinary tract infection) Current Visit: Yes Status: Acute Qualifiers: Urinary tract infection type: acute cystitis Hematuria presence: without hematuria Qualified Code(s): N30.00 - Acute cystitis without hematuria (2) Bradycardia, drug induced Current Visit: Yes Status: Resolved (3) Hypothyroid Current Visit: Yes Status: Chronic Qualifiers: Hypothyroidism type: acquired Qualified Code(s): E03.9 - Hypothyroidism, unspecified (4) Mass of hepatic flexure of colon Current Visit: Yes Status: Ruled-out (5) GERD (gastroesophageal reflux disease) Current Visit: Yes Status: Chronic Qualifiers: Esophagitis presence: without esophagitis Qualified Code(s): K21.9 - Gastro -esophageal reflux disease without esophagitis (6) HLD (hyperlipidemia) Current Visit: Yes Status: Chronic Qualifiers: Hyperlipidemia type: mixed hyperlipidemia Qualified Code(s): E78.2 - Mixed hyperlipidemia (7) Urinary retention Current Visit: Yes Status: Resolved (8) Infection due to Enterobacteriaceae Current Visit: Yes Status: Acute (9) Multiple drug resistant organism (MDRO) culture positive Current Visit: Yes Status: Acute (10) Morbid obesity with BMI of 50.0-59.9, adult Current Visit: Yes Status: Chronic - Constitutional Vitals: Temp Pulse Resp BP Pulse Ox 97.8 F 61 19 120/73 96 07/03/17 19:21 07/03/17 19:21 07/03/17 19:21 07/03/17 19:21 07/03/17 07:24 Internal Medicine: Result - Labs CBC & Chem 7: 07/03/17 05:41 07/03/17 05:41 Labs: Short CBC 07/03/17 Range/Units 05:41 WBC 8.1 (4.3-11.1) K/mcL Hgb 12.5 (11.5-15.4) g/dL Hct 38.3 (35.3-44.9) % Plt Count 246 (140-400) K/mcL Neutrophils # 3.9 (1.6-8.9) K/mcL BMP 07/03/17 05:41 Sodium 138 Potassium 3.3 L Chloride 104 Carbon Dioxide 28 BUN 17 Creatinine 0.95 Glucose 103 Calcium 8.6 - ABG Interpretation ABG results: PT/INR, D-dimer PT 10.4 Seconds (9.4-12.1) 06/30/17 14:14 - Impressions Impressions Brain MRI 07/02/17 17:48 IMPRESSION: No acute intracranial abnormality. D/ / Nilton Rodriguez / Nilton Rodriguez Interpreting Provider: Nilton Rodriguez - Attending Attestation I examined this patient and my medical decision-making was reviewed with the Resident Physician on 07/03/17. I agree with the documented findings, disposition and treatment plan as described except to the extent set forth below. Ms Anthony is currently in observation for bradycardia and has been found to have UTI with MRDR Enterobacter. She remains moderate to high risk. Ms Anthony feels about the same. Her urine has returned MDRO organism. No fever or chills. Still has lower abdominal pain. Exam alert Comfortable at this time Mucus membranes dry Heart reg No wheeze Abd soft I/P 1. UTI - will ask ID for input on abx choice 2. Start Topamax for tremor Further diagnoses and plan as above.
[2017-07-04] MEDS: *HR* Heparin 5,000 UNIT/ML VIAL SQ SCH (05:56)
[2017-07-04 06:08] LABS: Basophils % 0.2 %; Eosinophils # 0.1 K/mcL (0.0-0.6); Eosinophils % 1.1 %; Hematocrit 36.1 % (35.3-44.9); Hemoglobin 11.8 g/dL (11.5-15.4); Immature Granulocytes % 1.2 % (0-4); Lymphocytes # 3.4 K/mcL (0.6-4.6); Lymphocytes % 40.3 %; Mean Corpuscular HGB Conc 32.7 g/dL (31.6-35.5); Mean Corpuscular Hemoglobin 28.7 pg (28.0-33.3); Mean Corpuscular Volume 87.8 fL (83.0-100.0); Mean Platelet Volume 10.1 fL (9.4-12.4); Monocytes # 0.6 K/mcL (0.0-1.3); Monocytes % 7.2 %; Neutrophils # 4.3 K/mcL (1.6-8.9); Platelet Count 227 K/mcL (140-400); Red Blood Count 4.11 M/mcL (3.82-4.97); Red Cell Distribution Width 13.5 % (11.5-14.5)
[2017-07-04 06:29] LABS: BUN/Creatinine Ratio 19 (6-26); Blood Urea Nitrogen 18 mg/dL (6-20); Carbon Dioxide 30 mEq/L (23-29); Chloride 102 mEq/L (98-107); Glucose 105 mg/dL (70-105); Osmolality,Calculated 290 (280-300); Potassium 3.8 mEq/L (3.5-5.1); Sodium 139 mEq/L (136-145); eGFR For African Americans > 60 (> 60); eGFR For Non-African Americans > 60 (> 60)
[2017-07-04] MEDS: Gabapentin 300 MG CAPSULE PO SCH (08:32)
[2017-07-04] MEDS: Benzonatate 100 MG CAPSULE PO SCH (08:32)
[2017-07-04] MEDS: Topiramate 25 MG TABLET PO SCH (08:32)
[2017-07-04] MEDS: Torsemide 20 MG TABLET PO SCH (08:33)
[2017-07-04] MEDS: cefTRIAXone 1,000 MG in Water for inj. (sterile) 20 ML 10 ML IVP SCH (08:37)
[2017-07-04 10:40] VITALS: BP 109/67
--- NOTE | 2017-07-04 11:39 | Discharge Summary ---
<Rome Finley - Last Filed: 07/04/17 17:20> - NOTES TO OUTPATIENT PROVIDER Notes to Outpatient Provider: The patient will continue course of fosfomycin of 3g q48h x 3 doses. She will likely require follow-up UA if symptomatic. Orders not resulted at time of discharge: Pending orders 07/01/17 13:35 Culture,Urine [RM] Routine 07/02/17 10:23 ECG 48 holter monitor setup [ECG] Routine 07/02/17 13:34 Surgical Pathology [PTH] Routine Date of Encounter: 07/04/17 Time of Encounter: 08:50 - Discharge Diagnosis (1) Symptomatic bradycardia Priority: Primary Status: Resolved (2) UTI (urinary tract infection) Priority: Secondary Status: Acute Qualifiers: Urinary tract infection type: acute cystitis Hematuria presence: without hematuria Qualified Code(s): N30.00 - Acute cystitis without hematuria (3) Urinary retention Priority: Secondary Status: Resolved (4) Hypothyroid Priority: Secondary Status: Chronic Qualifiers: Hypothyroidism type: acquired Qualified Code(s): E03.9 - Hypothyroidism, unspecified (5) GERD (gastroesophageal reflux disease) Priority: Secondary Status: Chronic Qualifiers: Esophagitis presence: without esophagitis Qualified Code(s): K21.9 - Gastro -esophageal reflux disease without esophagitis (6) HLD (hyperlipidemia) Priority: Secondary Status: Chronic Qualifiers: Hyperlipidemia type: mixed hyperlipidemia Qualified Code(s): E78.2 - Mixed hyperlipidemia (7) Tremor Priority: Secondary Status: Chronic (8) Mood disorder Priority: Secondary Status: Chronic (9) Diplopia Priority: Secondary Status: Resolved (10) Mass of hepatic flexure of colon Priority: Secondary Status: Ruled-out Hospital course: 47 yo F presented to the ER Friday06/30/17 with symptomatic Bradycardia identified by home health nurse. Pt had tiredness and weakness 06/28/17 and woke up 06/30 feeling dizzy and lightheaded and SOB. Pt reports approximately 25 lb weight loss over 6 months, worsening diarrhea w/ food for 2-3 months, RUQ and RLQ pain, asthma exacerbation and cough for 2-3 months, and new onset urinary retention with discomfort. Chest X-ray showed no active pulmonary disease and heart size within normal limits. ECG showed Sinus bradycardia at a rate of 45 and nonspecific T-wave abnormality. Cardiology was consulted, propranolol was stopped . Catheter was inserted to relieve discomfort from urinary retention. On 07/02/17 she reported double vision and blurriness in R eye and a mild headache. Head CT and Brain MRI show no acute intracranial abnormality and no changes from the prior study. Neurology was consulted, suggest that vision changes may be related to migraine, to trial topiramate 25 mg daily and follow- up outpatient for tremor. An abdomen & pelvis CT showed a circumferential area thickening in the hepatic flexure of the colon suspicious for colon cancer and GI was consulted for further work-up. Colonoscopy showed sigmoid polyp removed with biopsy forceps and sent to path, diverticula, and non-bleeding internal hemorrhoids, no significant mass was seen. EGD showed medium hiatal hernia, acute gastritis and duodenitis. On 07/03/17 pt reports right flank pain and on 07/04 she admits to surpapubic pain. UA showed >10,000 colony forming of Enterobacter Colacae MDRO- sensitive to gentamicin, Levaquin, tigecycline, tobramycin, Bactrim, pt has allergies to Ciprofloxacin and Sulfonamide antibiotics, Infectious Disease was consulted for treatment recommendations they suggest fosfomycin 3 grams packet every 48 hrs x3 doses. Cardiology recommends outpatient follow-up with Holter Monitor. All relevant results have been discussed with the patient and she understands. At the time of discharge, the patient is stable with no significant vital abnormalities, and without significant bradycardia. She did demonstrate that her exercise she was able to raise her heart rate to an appropriate level. The patient will require some rehabilitation which can be done on an outpatient setting. I will discharge the patient home with follow-up to primary care in 3-5 days and follow up with neurology as directed. Additionally the patient should follow up with cardiology pending the results of the Holter monitor. Discharge discussed with: patient, nurse, case management, contact center consultant - Time Spent with Patient Total time spent providing and/or coordinating discharge services: Greater than 30 minutes - Discharge Medications Prescriptions: Fosfomycin Tromethamine [Monurol] 3 gm PO Q48H #2 packet Topiramate [Topamax] 25 mg PO DAILY #30 tablet Home Medications: Benzonatate [Tessalon] 200 mg PO TID 06/30/17 [History] Citalopram [CeleXA] 20 mg PO DAILY 06/30/17 [History] Ergocalciferol (VITAMIN D2) [Drisdol (50,000 Unit)] 50,000 units PO QWEEK [History] Gabapentin [Neurontin] 300 mg PO TID 06/30/17 [History] Levothyroxine Sodium [Synthroid] 137 mcg PO QAM 06/30/17 [History] Omeprazole [PriLOSEC] 20 mg PO DAILY 06/30/17 [History] Pravastatin Sodium [Pravachol] 40 mg PO HS 06/30/17 [History] Torsemide 10 mg PO DAILY 06/30/17 [History] Acetaminophen [Tylenol] 650 mg PO Q6HR PRN tablet 07/04/17 [Rx] Fosfomycin Tromethamine [Monurol] 3 gm PO Q48H #2 packet 07/04/17 [Rx] Topiramate [Topamax] 25 mg PO DAILY #30 tablet 07/04/17 [Rx] Allergies/Adverse Reactions: 3 Allergy/AdvReac Type Severity Reaction Status Date / Time ciprofloxacin [From Cipro] Allergy Anaphylaxis Verified 06/30/17 15:52 Hydromorphone [From Dilaudid] Allergy Anaphylaxis Verified 06/30/17 15:52 Sulfa (Sulfonamide Allergy Itching Verified 06/30/17 15:52 Antibiotics) primidone AdvReac Agitated Verified 07/03/17 13:25 Date of admission: 06/30/17 17:09 Primary care physician: Harvey Huitron MD Consults: 07/01/17 10:36 Consult to Physical Therapy [CONS] Routine Comment: Evaluate, develop and implement POC Reason for Consult: weakness Does patient have active BEDREST order?: No Is patient medically & hemodynamically stable?: Yes OT [Consult to Occupational Therapy] [CONS] Routine Comment: Evaluate, develop and implement POC Reason for Consult: weakness Does patient have active BEDREST order?: No Is patient medically & hemodynamically stable?: Yes 07/01/17 15:25 Consult to Gastroenterology [CONS] Routine Consulting Provider: [facility] Reason for Consult: CT A/P with oral contrast found circumfertial mass at hepatic flexure concerning of colon cancer. Appreciate GI evaluation such as scope. Call Completed: Yes 07/02/17 13:45 Consult to Neurology [CONS] Routine Consulting Provider: [facility]rology [facility] Reason for Consult: Double vision + essential tremor Time Notified: 13:46 Call Completed: Yes 07/03/17 11:09 Consult to Infectious Diseases [CONS] Routine Consulting Provider: [facility] [place] Reason for Consult: MRDO Enterobacter Call Completed: Yes Discharging clinician: Rome Finley Anticipated date of discharge: 07/04/17 - Constitutional Vitals: Temp Pulse Resp BP Pulse Ox 97.7 F 68 16 109/67 94 07/04/17 10:38 07/04/17 10:38 07/04/17 10:38 07/04/17 10:38 07/04/17 10:38 General appearance: Present: A&O X 3, no acute distress, obese Exam: Gen: Vitals noted. No acute distress. AAOx3 with seemingly mild MRDD HEENT: PERRL/EOMI, oropharynx clear, Normocephalic, atraumatic Neck: Supple. No adenopathy. Cardiac: RRR but slow, no murmur, +S1/S2 Pulmonary: CTA bilaterally, no wheezes, rales or rhonchi, equal chest expansion Abdomen: LLQ abdominal tenderness to palpation which is improved from prior Back: Nontender throughout. MSK: ROM intact, no joint swelling noted Extremities: no BLE edema, nontender calf, no cyanosis or clubbing Neuro: moves all extremities, no focal deficits Psych: Appropriate mood and behavior - Patient Status Disposition: Home Health Service Condition: Fair Functional capacity at discharge: uses cane/walker Overall status at discharge: patient is progressing back to baseline - Discharge Instructions Instructions: Fosfomycin (By mouth), Topiramate (By mouth), Urinary Tract Infection in Women (DC), Hypothyroidism (DC), Bradycardia (DC), Bradycardia (GEN ) Follow Up With: Harvey Huitron MD [Primary Care Provider] - 07/10/17 1:45 pm Rome Laurent, SOLUTION DESIGN ENGINEER [Advanced Practice Nurse] - (OFFICE WILL CALL YOU WITH APPOINTMENT DATE AND TIME, IF NO RETURN CALL BY JULY 08 PLEAE CALL OFFICE FOR FOLLOW UP APPOINTMENT SHER) Martha Watson MD [Partnered Physician] - (OFFICE WILL CALL YOU WITH APPPOINTMENT DAY AND TIME, IF NO RETURN CALL TO YOU BY SATURDAY 07/08 PLEASE CALL OF FOR INFORMATION REGARDING FOLLOW UP APPOINTMENT) Additional Instructions: Follow-up with PCP in 3-5 days, Follow-up with Neurology and Cardiology as directed Continue Fosfomycin every 48 hours for 3 total doses Discontinue propanolol, start topiramate Continue other medications as prescribed Wear holter monitor as directed by cardiology Return to ED for similar symptoms, loss or changes in consciousness, slow heart rate, chest pain, shortness of breath, fever or worsening urinary symptoms - Diet and Activity Activity: as per physical therapy, increase activity as tolerated Diet: low salt diet <Kimani Fishman - Last Filed: 07/04/17 19:19> Orders not resulted at time of discharge: Pending orders 07/01/17 13:35 Culture,Urine [RM] Routine Date of Encounter: 07/04/17 - Discharge Diagnosis (1) UTI (urinary tract infection) Priority: Primary Status: Acute Qualifiers: Urinary tract infection type: acute cystitis Hematuria presence: without hematuria Qualified Code(s): N30.00 - Acute cystitis without hematuria (2) Bradycardia, drug induced Priority: Secondary Status: Resolved (3) Hypothyroid Status: Chronic Qualifiers: Hypothyroidism type: acquired Qualified Code(s): E03.9 - Hypothyroidism, unspecified (4) Mass of hepatic flexure of colon Status: Ruled-out (5) GERD (gastroesophageal reflux disease) Status: Chronic Qualifiers: Esophagitis presence: without esophagitis Qualified Code(s): K21.9 - Gastro -esophageal reflux disease without esophagitis (6) HLD (hyperlipidemia) Status: Chronic Qualifiers: Hyperlipidemia type: mixed hyperlipidemia Qualified Code(s): E78.2 - Mixed hyperlipidemia (7) Urinary retention Status: Resolved (8) Infection due to Enterobacteriaceae Priority: Secondary Status: Acute (9) Multiple drug resistant organism (MDRO) culture positive Priority: Secondary Status: Acute (10) Morbid obesity with BMI of 50.0-59.9, adult Priority: Secondary Status: Chronic Hospital course: Ms. Anthony is a 47 year old female - Time Spent with Patient Total time spent providing and/or coordinating discharge services: 38min Date of admission: 06/30/17 17:09 Primary care physician: Harvey Huitron MD Consults: 07/01/17 10:36 Consult to Physical Therapy [CONS] Routine Comment: Evaluate, develop and implement POC Reason for Consult: weakness Does patient have active BEDREST order?: No Is patient medically & hemodynamically stable?: Yes OT [Consult to Occupational Therapy] [CONS] Routine Comment: Evaluate, develop and implement POC Reason for Consult: weakness Does patient have active BEDREST order?: No Is patient medically & hemodynamically stable?: Yes 07/01/17 15:25 Consult to Gastroenterology [CONS] Routine Consulting Provider: [facility] Reason for Consult: CT A/P with oral contrast found circumfertial mass at hepatic flexure concerning of colon cancer. Appreciate GI evaluation such as scope. Call Completed: Yes 07/02/17 13:45 Consult to Neurology [CONS] Routine Consulting Provider: [facility] Reason for Consult: Double vision + essential tremor Time Notified: 13:46 Call Completed: Yes 07/03/17 11:09 Consult to Infectious Diseases [CONS] Routine Consulting Provider: [facility] [place] Reason for Consult: MRDO Enterobacter Call Completed: Yes - Constitutional Vitals: Temp Pulse Resp BP Pulse Ox 97.7 F 68 16 109/67 94 07/04/17 10:38 07/04/17 10:38 07/04/17 10:38 07/04/17 10:38 07/04/17 10:38 - Attending Attestation I examined this patient and my medical decision-making was reviewed with the Resident Physician on 07/04/17. I agree with the documented findings, disposition and treatment plan as described except to the extent set forth below. Ms Anthony has been admitted for bradycardia and UTI. She has been treated with abx. She feels OK today and remains afebrile. She is ready for discharge home. Exam Alert. Comfortable Mucus membranes dry Heart reg No wheeze Plan D/C home today Complete abx.
[2017-07-04] MEDS ORDERED: Fosfomycin Tromethamine 3 GM Packet PO ONE (11:45)
--- NOTE | 2017-07-04 11:48 | Physician Discharge Referral ---
Home Health/Hosp Referral Info Transfer to: Home Health Attending Provider: Kimani Fishman DO Provider in Charge Post Discharge: PCP - Diagnosis (1) Symptomatic bradycardia Priority: Primary Status: Resolved (2) UTI (urinary tract infection) Priority: Secondary Status: Acute (3) Mass of hepatic flexure of colon Priority: Secondary Status: Ruled-out (4) Urinary retention Priority: Secondary Status: Resolved (5) Hypothyroid Priority: Secondary Status: Chronic (6) GERD (gastroesophageal reflux disease) Priority: Secondary Status: Chronic (7) HLD (hyperlipidemia) Priority: Secondary Status: Chronic (8) Tremor Priority: Secondary Status: Chronic (9) Mood disorder Priority: Secondary Status: Chronic (10) Diplopia Priority: Secondary Status: Resolved - Respiratory Orders None Smoking Cessation: Smoking cessation has been advised. For more information, call the [place] Tobacco Quit Line at 2-645-XIIZ-NOW. - Diet/Nutrition Diet/Nutrition Orders: Regular, No Added Salt (KELLEY), Cardiac - Activity Activity Orders: Up ad carol ann (As tolerated) - Services Needed Following services are medically necessary services: Nursing, Home Health Aide, Physical Therapy, Occupational Therapy - Transfer Medications Prescriptions: Topiramate [Topamax] 25 mg PO DAILY #30 tablet Home Medications: Benzonatate [Tessalon] 200 mg PO TID 06/30/17 [History] Citalopram [CeleXA] 20 mg PO DAILY 06/30/17 [History] Ergocalciferol (VITAMIN D2) [Drisdol (50,000 Unit)] 50,000 units PO QWEEK [History] Gabapentin [Neurontin] 300 mg PO TID 06/30/17 [History] Levothyroxine Sodium [Synthroid] 137 mcg PO QAM 06/30/17 [History] Omeprazole [PriLOSEC] 20 mg PO DAILY 06/30/17 [History] Pravastatin Sodium [Pravachol] 40 mg PO HS 06/30/17 [History] Torsemide 10 mg PO DAILY 06/30/17 [History] Acetaminophen [Tylenol] 650 mg PO Q6HR PRN tablet 07/04/17 [Rx] Topiramate [Topamax] 25 mg PO DAILY #30 tablet 07/04/17 [Rx] Allergies/Adverse Reactions: 3 Allergy/AdvReac Type Severity Reaction Status Date / Time ciprofloxacin [From Cipro] Allergy Anaphylaxis Verified 06/30/17 15:52 Hydromorphone [From Dilaudid] Allergy Anaphylaxis Verified 06/30/17 15:52 Sulfa (Sulfonamide Allergy Itching Verified 06/30/17 15:52 Antibiotics) primidone AdvReac Agitated Verified 07/03/17 13:25 Certification: Further, I certify that my clinical findings support that this patient is homebound (i.e. absences from home require considerable and taxing effort and are for medical reasons or denominational services or infrequently or short duration when for other reasons) because: Homebound Reason: Patient requires assistance of a person or device to safely leave home, Leaving home requires considerable and taxing effort due to condition Attestation: My signature below is to certify that this patient is under my care and that I, or nurse practitioner, or a physician's zoning assistant working with me, has a face-to -face encounter with this patient.
--- NOTE | 2017-07-04 14:31 | Infectious Disease Progress No ---
Date of Encounter: 07/04/17 Time of Encounter: 08:25 - Assessment and Plan (1) UTI (urinary tract infection) Status: Acute Organism Enterobacter Colacae MDRO- sensitive to gentamicin, Levaquin, tigecycline, tobramycin, Bactrim Allergies: Ciprofloxacin- anaphylaxis Sulfa- listed as itching (patient unsure of true reaction) Antibiotics since admission: Rocephin IV Antibiotics prior to admission: Cefdinir and Flagyl Plan: - Discharge antibiotics: Fosfomycin 3 grams packet every 48 hrs x 3 doses. Qualifiers: Urinary tract infection type: acute cystitis Hematuria presence: without hematuria Qualified Code(s): N30.00 - Acute cystitis without hematuria (2) Diarrhea Status: Acute Patient continues to have diarrhea - Stable vitals, labs demonstrate occasional hypokalemia possible from GI loss - Fecal lactoferrin (06/24) positive - Outpatient stool culture negative - Inpatient stool culture negative Qualifiers: Diarrhea type: unspecified type Qualified Code(s): R19.7 - Diarrhea, unspecified - Subjective Interval history: Ms. Anthony has been seen and evaluated this morning. She states that her urinary burning and retention has resolved. She continues to have diarrhea unchanged over the last 4 months. She denies any other concerning symptoms at this time. She has been tolerating oral intake and ate her entire breakfast. Denies any nausea or vomiting, fevers, chills, diaphoresis, chest pain, shortness of breath , cough or sputum production. Infect Dis PN-Objective Data - Labs CBC & Chem 7: 07/04/17 05:24 07/04/17 05:24 Labs: Laboratory Results - last 24 hr 07/04/17 07/04/17 05:24 05:24 WBC 8.5 RBC 4.11 Hgb 11.8 Hct 36.1 MCV 87.8 MCH 28.7 MCHC 32.7 RDW 13.5 Plt Count 227 MPV 10.1 Immature Gran % 1.2 Seg Neutrophils % 50.0 Lymphocytes % 40.3 Monocytes % 7.2 Eosinophils % 1.1 Basophils % 0.2 Neutrophils # 4.3 Lymphocytes # 3.4 Monocytes # 0.6 Eosinophils # 0.1 Basophils # 0.0 Sodium 139 Potassium 3.8 Chloride 102 Carbon Dioxide 30 H BUN 18 Creatinine 0.95 Est GFR ( Amer) > 60 Est GFR (Non-Af Amer) > 60 BUN/Creatinine Ratio 19 Glucose 105 Calculated Osmolality 290 Calcium 9.0 Cultures: Cultures 07/01/17 13:35 Urine Culture - Preliminary Urine,Clean Catch Enterobacter cloacae MDRO Serology 07/01/17 07/01/17 Range/Units 14:57 13:35 Urine Color Yellow (Yellow) Urine Clarity Clear (Clear) Urine pH 6.5 (5.0-8.0) pH Units Ur Specific [place] 1.014 (1.010-1.025) Urine Protein Negative (Neg-Trace) mg/dL Urine Glucose (UA) Normal (Normal) mg/dL Urine Ketones Negative (Negative) mg/dL Urine Blood Negative (Negative) Urine Nitrite Negative (Negative) Urine Bilirubin Negative (Negative) Urine Urobilinogen Normal (Normal) mg/dL Ur Leukocyte Esterase Small H (Negative) Urine Microscopic RBC 5-15 H (0-3) per hpf Urine Microscopic WBC 0-3 (0-3) per hpf Ur Squamous Epith Cells Moderate H (None-Few) per lpf Urine Bacteria None Seen (None-Few) per hpf Hyaline Casts None Seen (None-Few) per lpf Ur Culture Indicated? YES A (NO) Stl C. cayetanensis PCR Not detected (Not detect) Stool Rotavirus A PCR Not detected (Not detect) Stl Adenov F 40/41 PCR Not detected (Not detect) Stool Astrovirus (PCR) Not detected (Not detect) Stool Campylobacter PCR Not detected (Not detect) Stl C. diff Tox A/B PCR Not detected (Not detect) Stool Cryptosporidium PCR Not detected (Not detect) Stl Sh Tox Pr E STEC PCR Not detected (Not detect) Stool E coli O157 PCR Not detected (Not detect) Stl Enterotoxigenic E PCR Not detected (Not detect) Stool EPEC (PCR) Not detected (Not detect) Stool EAEC (PCR) Not detected (Not detect) Stl E. histolytica PCR Not detected (Not detect) Stool Giardia Lamblia PCR Not detected (Not detect) Stool Salmonella PCR Not detected (Not detect) Stool Sapovirus (PCR) Not detected (Not detect) Stl P. shigelloides PCR Not detected (Not detect) Stl Shigella/EIEC PCR Not detected (Not detect) St Y.enterocolitica PCR Not detected (Not detect) Stool Vibrio (PCR) Not detected (Not detect) Stl Vibrio cholerae PCR Not detected (Not detect) Stl Norovirus GI/GII PCR Not detected (Not detect) Stl GI Panel (PCR) Com See below Exam - Constitutional Vitals: Temp Pulse Resp BP Pulse Ox 97.7 F 68 16 109/67 94 07/04/17 10:38 07/04/17 10:38 07/04/17 10:38 07/04/17 10:38 07/04/17 10:38 Exam: General: Patient alert, awake, oriented 3, interactive, in no acute distress HEENT: Normocephalic, atraumatic, pupils equal reactive to light, nasal cavity patent and open septum median position, oral mucosa moist, uvula midline, neck supple trachea midline no palpable lymphadenopathy, no thyromegaly. Chest: Symmetric bilateral correlating with respiratory effort, effort nonlabored. Cardiac: Regular rate and rhythm, positive S1 and S2. no bruits appreciated bilateral carotids, Radial pulses 2+ bilateral, posterior tibial and dorsal pedal pulses 2+ bilateral. Respiratory: Clear to auscultation all lung anderson Abdomen: Soft, obese, nontender positive bowel sounds, no palpable masses appreciated on examination Extremities: Symmetric bilateral, bilateral lower extremities without erythema or edema patient moving all 4 extremities spontaneously. Neurologic: No focal deficits appreciated on examination. Face symmetric, muscle strength symmetric bilateral upper and lower extremities. Consult Discharge Plan - Plan Instructions: Fosfomycin (By mouth), Topiramate (By mouth), Urinary Tract Infection in Women (DC), Hypothyroidism (DC), Bradycardia (DC), Bradycardia (GEN ) Additional Instructions: Follow-up with PCP in 3-5 days, Follow-up with Neurology and Cardiology as directed Continue Fosfomycin every 48 hours for 3 total doses Discontinue propanolol, start topiramate Continue other medications as prescribed Wear holter monitor as directed by cardiology Return to ED for similar symptoms, loss or changes in consciousness, slow heart rate, chest pain, shortness of breath, fever or worsening urinary symptoms Referrals: Harvey Huitron MD [Primary Care Provider] - 07/10/17 1:45 pm Rome Laurent CNP [Advanced Practice Nurse] - (OFFICE WILL CALL YOU WITH APPOINTMENT DATE AND TIME, IF NO RETURN CALL BY JULY 08 P[facility]AE CALL OFFICE FOR FOLLOW UP APPOINTMENT INFORMAITON) Martha Watson MD [Partnered Physician] - (OFFICE WILL CALL YOU WITH APPPOINTMENT DAY AND TIME, IF NO RETURN CALL TO YOU BY SATURDAY 07/08 PLEASE CALL OF FOR INFORMATION REGARDING FOLLOW UP APPOINTMENT) Prescriptions: Fosfomycin Tromethamine [Monurol] 3 gm PO Q48H #2 packet Topiramate [Topamax] 25 mg PO DAILY #30 tablet - Attending Attestation I examined this patient and my medical decision-making was reviewed with the Resident Physician. I agree with the documented findings, disposition and treatment plan as described except to the extent set forth below.
== END 2017-07-04 15:16 | disposition home health service (06) ==
LOC: 2NENU 14:01 → EMEROO 14:01 → SUATTDRO 17:09 → 2NENU 17:38
PROVIDERS: ADMIT Hospitalist; ATTEND Internal Medicine
PROC: ENDOCBX (2017-07-02 15:50)

== ENCOUNTER 2018-05-21 13:16 | Observation (INO) ==
[2018-05-21] MEDS ORDERED: Nitroglycerin 0.4 MG TAB.SUBL SL PRN (13:34)
[2018-05-21] MEDS ORDERED: *HR* HYDROcodone/Acet 5/325 mg TABLET PO ONE (13:55)
[2018-05-21 14:00] LABS: Basophils % 0.4 %; Eosinophils # 0.1 K/mcL (0.0-0.6); Eosinophils % 1.3 %; Hematocrit 39.7 % (35.3-44.9); Hemoglobin 13.1 g/dL (11.5-15.4); Immature Granulocytes % 0.4 % (0-4); Lymphocytes # 3.5 K/mcL (0.6-4.6); Lymphocytes % 45.4 %; Mean Platelet Volume 10.1 fL (9.4-12.4); Monocytes # 0.6 K/mcL (0.0-1.3); Monocytes % 7.7 %; Neutrophils # 3.4 K/mcL (1.6-8.9); Platelet Count 203 K/mcL (140-400); Red Blood Count 4.51 M/mcL (3.82-4.97); Red Cell Distribution Width 12.6 % (11.5-14.5); Segmented Neutrophils % 44.8 %
[2018-05-21 14:19] LABS: BUN/Creatinine Ratio 22 (6-26); Blood Urea Nitrogen 18 mg/dL (6-20); Calcium 9.2 mg/dL (8.6-10.3); Carbon Dioxide 27 mEq/L (23-29); Chloride 106 mEq/L (98-107); Glucose 90 mg/dL (70-105); Osmolality,Calculated 289 (280-300); Potassium 3.7 mEq/L (3.5-5.1); Sodium 139 mEq/L (136-145); Troponin I < 0.03 ng/mL (< 0.04); eGFR For Non-African Americans > 60 (> 60)
--- NOTE | 2018-05-21 14:26 | Emergency Department Note ---
Disposition Clinical Impression: Chest pain Qualifiers: Chest pain type: unspecified Qualified Code(s): R07.9 - Chest pain, unspecified Disposition: Admitted As Inpatient Condition: Fair Time of Disposition: 15:09 General Adult HPI - General Chief complaint: ED Chest Pain Stated complaint: CP Time Seen by Provider: 05/21/18 13:19 Source: patient Limitations: no limitations Nursing Notes Reviewed: Yes Vital Signs Reviewed: Yes - History of Present Illness HPI Narrative: 48-year-old female with significant past medical history of coronary artery disease, hyperlipidemia and bradycardia presenting to the emergency department chief complaint of chest pain. Patient states she has had constant chest pain for the past 3 days along with weakness and nausea. Patient denies any vomiting or diaphoresis. Denies any shortness of breath. She states she went today to see the human resources supervisor where they completed an EKG and was concerned about her chest pain EKG findings and sent her here for further evaluation. Patient saw having active chest pain at this time. Denies trying any medications at home for pain relief. Patient was given a full dose aspirin at the human resources supervisor office. Patient denies any stents or history of CABG. Denies any anticoagulation use. Pain Scale: 8 - Related Data Home Medications Medication Instructions Recorded Confirmed Benzonatate [Tessalon] 200 mg PO TID 06/30/17 06/30/17 Citalopram [CeleXA] 20 mg PO DAILY 06/30/17 06/30/17 Ergocalciferol (VITAMIN D2) 50,000 units PO QWEEK 06/30/17 06/30/17 [Drisdol (50,000 Unit)] Gabapentin [Neurontin] 300 mg PO TID 06/30/17 06/30/17 Levothyroxine Sodium [Synthroid] 137 mcg PO QAM 06/30/17 06/30/17 Omeprazole [PriLOSEC] 20 mg PO DAILY 06/30/17 06/30/17 Pravastatin Sodium [Pravachol] 40 mg PO HS 06/30/17 06/30/17 Torsemide 10 mg PO DAILY 06/30/17 06/30/17 Previous Rx's Medication Instructions Recorded Acetaminophen [Tylenol] 650 mg PO Q6HR PRN tablet 07/04/17 Fosfomycin Tromethamine [Monurol] 3 gm PO Q48H #2 packet 07/04/17 Topiramate [Topamax] 25 mg PO DAILY #30 tablet 07/04/17 Hyoscyamine SL [Levsin SL] 0.125 mg SL Q4HR PRN #15 tab.subl 04/23/18 Allergies Allergy/AdvReac Type Severity Reaction Status Date / Time ciprofloxacin [From Cipro] Allergy Anaphylaxis Verified 06/30/17 15:52 hydromorphone [From Dilaudid] Allergy Anaphylaxis Verified 06/30/17 15:52 morphine Allergy Anaphylaxis Verified 05/21/18 13:58 Sulfa (Sulfonamide Allergy Itching Verified 06/30/17 15:52 Antibiotics) primidone AdvReac Agitated Verified 07/03/17 13:25 All systems ED: reviewed and negative except as stated. Constitutional: Reports: weakness. Denies: fever Eyes: Reports: as per HPI ENT ED: Reports: as per HPI Cardiovascular: Reports: chest pain Respiratory: Denies: dyspnea Gastrointestinal: Denies: abdominal pain Genitourinary: Reports: as per HPI Musculoskeletal: Reports: as per HPI Integumentary: Reports: as per HPI Neurological: Reports: as per HPI Psychiatric: Reports: as per HPI Endocrine: Reports: as per HPI Hematological/Lymphatic: Reports: as per HPI Allergic/Immunologic: Reports: as per HPI Past Medical History - Past Medical History Attestation: Yes The following information was validated with the patient. 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 Absent: respiratory distress, wheezes - Cardiovascular Cardiovascular exam: Present: normal rhythm, bradycardia, normal heart sounds - Abdominal Exam Abdominal exam: Present: soft, Non-Tender. Absent: distention, guarding, rebound - Extremities Exam Extremities exam: Present: full ROM - Neurological Exam Neurological exam: Present: alert, oriented X3 - Psychiatric Psychiatric exam: Present: normal affect - Skin Skin exam: Present: warm, intact Course Course Narrative: 48-year-old female presenting to the emergency department chief complaint of chest pain. Patient was sent by cardiology with concerns for diffuse ST segment depression in her EKG. In the room patient is still having active chest pain. She is alert and oriented 3 and hemodynamically stable. At this time will obtain a chest pain workup including labs, troponin, EKG and chest x-ray. We will provide the patient with sublingual nitroglycerin. Patient already received full dose aspirin at cardiology office. - Reevaluation(s) Reevaluation #1: Patient's laboratory analysis within normal limits. Troponin negative. Repeat EKG here unchanged. Patient took 1 sublingual nitroglycerin which did not relieve her pain and refuses any further. I provided her with an oral [place] as she is allergic to multiple IV pain medications with anaphylaxis. I spoke with the human resources supervisor stone crusher operator Dr. Jack who recommended a nitro drip and admission for further evaluation and echo. He does not recommend heparinization at this time. At this time will plan to admit the patient for further analysis. Patient remains alert and oriented 3 and hemodynamically stable. I spoke with the hospitalist on-call who agrees to accept the patient at this time. Vital Signs Temperature 97.4 F L 05/21/18 13:22 Pulse Rate 45 05/21/18 13:22 Respiratory Rate 20 05/21/18 13:22 Blood Pressure 148/82 05/21/18 13:22 O2 Sat by Pulse Oximetry 100 05/21/18 13:22 Temperature 97.4 F L 05/21/18 13:22 Pulse Rate 48 05/21/18 14:56 Respiratory Rate 18 05/21/18 14:56 Blood Pressure 177/72 05/21/18 14:56 O2 Sat by Pulse Oximetry 100 05/21/18 14:56 Oxygen Delivery Oxygen Delivery Room Air Medical Decision Making - Lab Data Result diagrams: 05/21/18 13:41 05/21/18 13:41 Lab Results 05/21/18 05/21/18 Range/Units 13:41 13:41 WBC 7.7 (4.3-11.1) K/mcL RBC 4.51 (3.82-4.97) M/mcL Hgb 13.1 (11.5-15.4) g/dL Hct 39.7 (35.3-44.9) % MCV 88.0 (83.0-100.0) fL MCH 29.0 (28.0-33.3) pg MCHC 33.0 (31.6-35.5) g/dL RDW 12.6 (11.5-14.5) % Plt Count 203 (140-400) K/mcL MPV 10.1 (9.4-12.4) fL Immature Gran % 0.4 (0-4) % Seg Neutrophils % 44.8 % Lymphocytes % 45.4 % Monocytes % 7.7 % Eosinophils % 1.3 % Basophils % 0.4 % Neutrophils # 3.4 (1.6-8.9) K/mcL Lymphocytes # 3.5 (0.6-4.6) K/mcL Monocytes # 0.6 (0.0-1.3) K/mcL Eosinophils # 0.1 (0.0-0.6) K/mcL Basophils # 0.0 (0.0-0.2) K/mcL Sodium 139 (136-145) mEq/L Potassium 3.7 (3.5-5.1) mEq/L Chloride 106 (98-107) mEq/L Carbon Dioxide 27 (23-29) mEq/L BUN 18 (6-20) mg/dL Creatinine 0.83 (0.60-1.20) mg/dL Est GFR ( Amer) > 60 (> 60) Est GFR (Non-Af Amer) > 60 (> 60) BUN/Creatinine Ratio 22 (6-26) Glucose 90 (70-105) mg/dL Calculated Osmolality 289 (280-300) Calcium 9.2 (8.6-10.3) mg/dL Troponin I < 0.03 (< 0.04) ng/mL - EKG Data EKG #1 EKG attestation: Yes I reviewed and interpreted this EKG. EKG results narrative: Sinus bradycardia. 47 bpm. [place] interval 136, QRS 83, QTC 4:30. No sign of acute ST segment elevation or ischemia. EKG #2 EKG attestation: Yes I reviewed and interpreted this EKG. EKG results narrative: Sinus bradycardia. 47 bpm. [place] interval 136, QRS 83, QTC 4:30. No sign of acute ST segment elevation or ischemia.
--- NOTE | 2018-05-21 15:07 | Internal Med History&Physical ---
Date of Encounter: 05/21/18 Time of Encounter: 15:03 Internal Medicine - H&P: HPI Chief complaint: chest pain Admitted From: Home Plans for Post Hospital Care: Home History of present illness: Ms. Anthony is a 48 year old female coronary artery disease, hypertension, hyperlipidemia and hypothyroid who presents to the ER on 06/30/17 due to chest tightness from her escapement matcher Dr. Nguyen's office. As per patient her sympt oms started about 3 days ago and is constant, progressively worsening. She characterizes her chest pain as pressure-like, 8 out of 10 on severity and without radiation. Her chest pain is also associated with shortness of breath both at rest and on ambulation. She reports that she is had symptoms similar to this previously, denies any history of cardiac catheterization or stents. She denies PND, orthopnea or leg swelling. She is compliant with all her medications and he denies recent prolonged travel or sick contacts. She denies fever, chills, nausea, vomiting, diarrhea, palpitations, headache, syncope, loss of vision, heat or cold intolerance. While at the cardiology office she was given aspirin 325 mg and was referred to the emergency department for further evaluation of her chest pain. in the emergency department cardiology, Dr. Jack was consulted and he recommended a nitroglycerin drip. As per the ED physician he did not recommend any anticoagulation currently and he was evaluated the patient once admitted. Past Med Surg Social Fam HX - Past Medical History Medical history: asthma, coronary artery disease, hyperlipidemia, thyroid disease Psychiatric history: depression - Past Surgical History Surgical History: - Social History Smoking Status: Never smoker Smokeless Tobacco Status: No Alcohol use: none Drug use: none - Family History Father Family Member Ethnicity: Non- Living Status: Still Living Hx Family Cardiac Disorders: Yes Hx Family Respiratory Disorders: No Hx Family Cancer: No Hx Family GI Disorders: No Internal Medicine - H&P: Meds Benzonatate [Tessalon] 200 mg PO TID 06/30/17 [History] Citalopram [CeleXA] 20 mg PO DAILY 06/30/17 [History] Ergocalciferol (VITAMIN D2) [Drisdol (50,000 Unit)] 50,000 units PO QWEEK 06/30/17 [History] Gabapentin [Neurontin] 300 mg PO TID 06/30/17 [History] Levothyroxine Sodium [Synthroid] 137 mcg PO QAM 06/30/17 [History] Omeprazole [PriLOSEC] 20 mg PO DAILY 06/30/17 [History] Pravastatin Sodium [Pravachol] 40 mg PO HS 06/30/17 [History] Torsemide 10 mg PO DAILY 06/30/17 [History] Acetaminophen [Tylenol] 650 mg PO Q6HR PRN tablet 07/04/17 [Rx] Fosfomycin Tromethamine [Monurol] 3 gm PO Q48H #2 packet 07/04/17 [Rx] Topiramate [Topamax] 25 mg PO DAILY #30 tablet 07/04/17 [Rx] Hyoscyamine SL [Levsin SL] 0.125 mg SL Q4HR PRN #15 tab.subl 04/23/18 [Rx] Allergy/AdvReac Type Severity Reaction Status Date / Time ciprofloxacin [From Cipro] Allergy Anaphylaxis Verified 06/30/17 15:52 hydromorphone [From Dilaudid] Allergy Anaphylaxis Verified 06/30/17 15:52 morphine Allergy Anaphylaxis Verified 05/21/18 13:58 Sulfa (Sulfonamide Allergy Itching Verified 06/30/17 15:52 Antibiotics) primidone AdvReac Agitated Verified 07/03/17 13:25 All Systems PM: A 10-system review of systems was performed and is negative for pertinent findings except as documented above in the HPI. - Constitutional Vitals: Temp Pulse Resp BP Pulse Ox 97.4 F L 48 18 177/72 100 05/21/18 13:22 05/21/18 14:56 05/21/18 14:56 05/21/18 14:56 05/21/18 14:56 Exam: General: Patient is alert, oriented, no acute distress, obese Head: atraumatic, normocephalic, Eye: normal appearance, PERRL, no scleral icterus, no conjunctival injection ENT: mucous membranes moist, normal external ear exam Neck: normal inspection, trachea midline, full ROM, no carotid bruits Chest: normal inspection, symmetric chest rise Respiratory: Distant breath sounds secondary to body habitus Good respiratory effort. Bilateral breath sounds are clear without wheezing, crackles, or rhonchi. Cardiovascular: Distant heart sounds secondary to body habitus, bradycardic s1 and s2 No clicks, rubs, gallops, or murmors. Abdomen: Bowel sounds present normoactive x-4 quadrants. Abdomen is soft, nondistended. no Epigastric tenderness. No guarding or rebound. No organomegaly noted, obese musculoskeletal: Spontaneously moving all extremities. no edema, no calf tenderness Skin: warm, dry, intact. Neuro: Alert and oriented x4. No focal deficit Psych: Patient's affect is normal Internal Med - H&P Results - Labs CBC & Chem 7: 05/21/18 13:41 05/21/18 13:41 Labs: Short CBC 05/21/18 Range/Units 13:41 WBC 7.7 (4.3-11.1) K/mcL Hgb 13.1 (11.5-15.4) g/dL Hct 39.7 (35.3-44.9) % Plt Count 203 (140-400) K/mcL Neutrophils # 3.4 (1.6-8.9) K/mcL BMP 05/21/18 13:41 Sodium 139 Potassium 3.7 Chloride 106 Carbon Dioxide 27 BUN 18 Creatinine 0.83 Glucose 90 Calcium 9.2 Cardiac Enzymes 05/21/18 Range/Units 13:41 Troponin I < 0.03 (< 0.04) ng/mL - EKG Data -: EKG Interpreted by Myself (Sinus bradycardia ST depression and T-wave inversions in 2-3 aVF and V3-V6) - EKG Data Prior EKG available for review: yes When compared to previous EKG: there are significant changes (The T-wave inversions in V5 and V6 are new ) - Impressions ITS Impressions Chest X-Ray 05/21/18 13:34 IMPRESSION: No acute abnormality. D/ / Eric Walsh MD / Eric Walsh MD Interpreting Provider: Eric Walsh MD - Assessment and plan (1) Angina at rest Current Visit: Yes Status: Acute Assessment and plan: Chest pain will rule out ACS First troponin was negative will continue to follow along with EKG every 6 hours 2 Cardiac monitoring Cardiology was consulted and recommended nitroglycerin drip will follow further recommendations Was loaded with aspirin 325 mg while at the cardiology clinic Echocardiogram We will keep nothing by mouth at midnight for further cardiac testing continue statins (2) Bradycardia Current Visit: Yes Status: Acute Assessment and plan: Chronic Avoid AV yoseph blocking agents (3) HLD (hyperlipidemia) Current Visit: No Status: Chronic Assessment and plan: Continue with statin Lipid panel in the morning Qualifiers: Hyperlipidemia type: mixed hyperlipidemia Qualified Code(s): E78.2 - Mixed hyperlipidemia (4) Hypothyroid Current Visit: No Status: Chronic Assessment and plan: Continue with home dose Synthroid TSH in the morning Qualifiers: Hypothyroidism type: acquired Qualified Code(s): E03.9 - Hypothyroidism, unspecified (5) GERD (gastroesophageal reflux disease) Current Visit: No Status: Chronic Assessment and plan: Continue with PPI Qualifiers: Esophagitis presence: without esophagitis Qualified Code(s): K21.9 - Gastro-esophageal reflux disease without esophagitis (6) Mood disorder Current Visit: No Status: Chronic Assessment and plan: Continue with home medications if not contraindicated once confirmed (7) DVT prophylaxis Current Visit: No Status: Acute Assessment and plan: Heparin subcutaneous - Time Spent With Patient Total time spent is greater than 50% in coordination of care (as documented) at patient's floor/unit and/or counseling patient:
[2018-05-21] MEDS ORDERED: Naloxone 0.4 MG/ML INJ IVP PRN (15:15)
[2018-05-21] MEDS ORDERED: Acetaminophen 325 MG TABLET PO PRN (15:15)
--- NOTE | 2018-05-21 15:18 | Emergency Department Note ---
Disposition Clinical Impression: Chest pain Qualifiers: Chest pain type: unspecified Qualified Code(s): R07.9 - Chest pain, unspecified Disposition: Admitted As Inpatient Condition: Fair General Adult HPI - General Chief complaint: ED Chest Pain Stated complaint: CP Time Seen by Provider: 05/21/18 13:19 Source: patient Limitations: no limitations - History of Present Illness Pain Scale: 8 - Related Data Home Medications Medication Instructions Recorded Confirmed Benzonatate [Tessalon] 200 mg PO TID 06/30/17 06/30/17 Citalopram [CeleXA] 20 mg PO DAILY 06/30/17 06/30/17 Ergocalciferol (VITAMIN D2) 50,000 units PO QWEEK 06/30/17 06/30/17 [Drisdol (50,000 Unit)] Gabapentin [Neurontin] 300 mg PO TID 06/30/17 06/30/17 Levothyroxine Sodium [Synthroid] 137 mcg PO QAM 06/30/17 06/30/17 Omeprazole [PriLOSEC] 20 mg PO DAILY 06/30/17 06/30/17 Pravastatin Sodium [Pravachol] 40 mg PO HS 06/30/17 06/30/17 Torsemide 10 mg PO DAILY 06/30/17 06/30/17 Previous Rx's Medication Instructions Recorded Acetaminophen [Tylenol] 650 mg PO Q6HR PRN tablet 07/04/17 Fosfomycin Tromethamine [Monurol] 3 gm PO Q48H #2 packet 07/04/17 Topiramate [Topamax] 25 mg PO DAILY #30 tablet 07/04/17 Hyoscyamine SL [Levsin SL] 0.125 mg SL Q4HR PRN #15 tab.subl 04/23/18 Allergies Allergy/AdvReac Type Severity Reaction Status Date / Time ciprofloxacin [From Cipro] Allergy Anaphylaxis Verified 06/30/17 15:52 hydromorphone [From Dilaudid] Allergy Anaphylaxis Verified 06/30/17 15:52 morphine Allergy Anaphylaxis Verified 05/21/18 13:58 Sulfa (Sulfonamide Allergy Itching Verified 06/30/17 15:52 Antibiotics) primidone AdvReac Agitated Verified 07/03/17 13:25 Constitutional: Reports: weakness. Denies: fever Eyes: Reports: as per HPI ENT ED: Reports: as per HPI Cardiovascular: Reports: chest pain Respiratory: Denies: dyspnea Gastrointestinal: Denies: abdominal pain Genitourinary: Reports: as per HPI Musculoskeletal: Reports: as per HPI Integumentary: Reports: as per HPI Neurological: Reports: as per HPI Psychiatric: Reports: as per HPI Endocrine: Reports: as per HPI Hematological/Lymphatic: Reports: as per HPI Allergic/Immunologic: Reports: as per HPI Past Medical History - Past Medical History Medical history: Reports: asthma, coronary artery disease, hyperlipidemia, thyroid disease Surgical history: Reports: Psychiatric history: Reports: depression 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 - Social History Smoking Status: Never smoker Smokeless Tobacco Status: No Alcohol use: Reports: none Drug use: Reports: none Physical Exam - General Limitations: no limitations General appearance: alert, in no apparent distress Course Vital Signs Temperature 97.4 F L 05/21/18 13:22 Pulse Rate 45 05/21/18 13:22 Respiratory Rate 20 05/21/18 13:22 Blood Pressure 148/82 05/21/18 13:22 O2 Sat by Pulse Oximetry 100 05/21/18 13:22 Temperature 97.4 F L 05/21/18 13:22 Pulse Rate 48 05/21/18 14:56 Respiratory Rate 18 05/21/18 14:56 Blood Pressure 117/72 05/21/18 14:56 O2 Sat by Pulse Oximetry 100 05/21/18 14:56 Oxygen Delivery Oxygen Delivery Room Air Medical Decision Making - Lab Data Result diagrams: 05/21/18 13:41 05/21/18 13:41 Lab Results 05/21/18 05/21/18 Range/Units 13:41 13:41 WBC 7.7 (4.3-11.1) K/mcL RBC 4.51 (3.82-4.97) M/mcL Hgb 13.1 (11.5-15.4) g/dL Hct 39.7 (35.3-44.9) % MCV 88.0 (83.0-100.0) fL MCH 29.0 (28.0-33.3) pg MCHC 33.0 (31.6-35.5) g/dL RDW 12.6 (11.5-14.5) % Plt Count 203 (140-400) K/mcL MPV 10.1 (9.4-12.4) fL Immature Gran % 0.4 (0-4) % Seg Neutrophils % 44.8 % Lymphocytes % 45.4 % Monocytes % 7.7 % Eosinophils % 1.3 % Basophils % 0.4 % Neutrophils # 3.4 (1.6-8.9) K/mcL Lymphocytes # 3.5 (0.6-4.6) K/mcL Monocytes # 0.6 (0.0-1.3) K/mcL Eosinophils # 0.1 (0.0-0.6) K/mcL Basophils # 0.0 (0.0-0.2) K/mcL Sodium 139 (136-145) mEq/L Potassium 3.7 (3.5-5.1) mEq/L Chloride 106 (98-107) mEq/L Carbon Dioxide 27 (23-29) mEq/L BUN 18 (6-20) mg/dL Creatinine 0.83 (0.60-1.20) mg/dL Est GFR ( Amer) > 60 (> 60) Est GFR (Non-Af Amer) > 60 (> 60) BUN/Creatinine Ratio 22 (6-26) Glucose 90 (70-105) mg/dL Calculated Osmolality 289 (280-300) Calcium 9.2 (8.6-10.3) mg/dL Troponin I < 0.03 (< 0.04) ng/mL Attestation Statement - Attestation Attestation: I examined this patient and my medical decision-making was reviewed with the Resident Physician. I agree with the documented findings, disposition and treatment plan as described except to the extent set forth below. Patient to the emergency department with a chief complaint of chest pain. Onset 3 days ago. Unchanged. Sent over from the straightener and aligner's office. She had an EKG that showed some inferior T-wave inversions which were also present on old EKG. On exam she is, cooperative sitting up in bed. Heart regular lungs are clear. Plan. Troponin is negative. Patient is admitted for further cardiac workup. Chest X-Ray 05/21/18 13:34 IMPRESSION: No acute abnormality. D/ / Eric Walsh MD / Eric Walsh MD Interpreting Provider: Eric Walsh MD
[2018-05-21] MEDS ORDERED: Ipratropium/Albuterol Neb 3 ML IH PRN (15:36)
[2018-05-21] MEDS ORDERED: Perflutren Lipid Microsphere 1.3 ML in 0.9 % Sodium Chloride 8.7 ML IVP ONE (18:29)
[2018-05-21] MEDS ORDERED: traMADol 50 MG TABLET PO PRN (18:39)
[2018-05-21] MEDS ORDERED: TORSEMIDE 10 MG PO PRN (18:39)
[2018-05-21] MEDS: Nitroglycerin 25 MG/250 ML INFUS..BTL IVC SCH (19:39)
[2018-05-21] MEDS ORDERED: Topiramate 25 MG TABLET PO SCH (21:00)
[2018-05-21] MEDS: *HR* Heparin 5,000 UNIT/ML VIAL SQ SCH (21:53)
[2018-05-21] MEDS: Gabapentin 300 MG CAPSULE PO SCH (21:53)
[2018-05-22 01:07] LABS: Basophils % 0.5 %; Eosinophils # 0.1 K/mcL (0.0-0.6); Eosinophils % 1.3 %; Hematocrit 38.7 % (35.3-44.9); Hemoglobin 12.7 g/dL (11.5-15.4); Immature Granulocytes % 0.4 % (0-4); Lymphocytes # 3.6 K/mcL (0.6-4.6); Lymphocytes % 42.8 %; Mean Corpuscular HGB Conc 32.8 g/dL (31.6-35.5); Mean Corpuscular Hemoglobin 28.8 pg (28.0-33.3); Mean Corpuscular Volume 87.8 fL (83.0-100.0); Monocytes # 0.7 K/mcL (0.0-1.3); Monocytes % 7.8 %; Platelet Count 187 K/mcL (140-400); Red Blood Count 4.41 M/mcL (3.82-4.97); Red Cell Distribution Width 12.8 % (11.5-14.5); Segmented Neutrophils % 47.2 %
[2018-05-22 01:27] LABS: BUN/Creatinine Ratio 22 (6-26); Blood Urea Nitrogen 15 mg/dL (6-20); Carbon Dioxide 23 mEq/L (23-29); Chloride 109 mEq/L (98-107); Chol/HDL Ratio 2.3 (0-4.9); Cholesterol 128 mg/dL (< 200); Glucose 90 mg/dL (70-105); HDL Cholesterol 55 mg/dL (40-59); LDL Cholesterol,Calculated 51 mg/dL (0-99); Magnesium 2.2 mg/dL (1.6-2.6); Osmolality,Calculated 280 (280-300); Phosphorous 3.8 mg/dL (2.7-4.5); Potassium 3.7 mEq/L (3.5-5.1); Sodium 135 mEq/L (136-145); Triglycerides 110 mg/dL (< 150); eGFR For Non-African Americans > 60 (> 60)
--- NOTE | 2018-05-22 03:34 | Electrocardiograph Report ---
[place] [facility] Test Date: 2018-05-21 Pat Name: Tom Anthony Department: EXAM12 Room: 2A47 Gender: F Inweaver: : 1970 Requested By: Lina Gonzalez Order Number: [id number] Reading MD: Domingo Odonnell Measurements Intervals [place] Rate: 47 P: 64 OR: 136 QRS: 51 QRSD: 83 T: 1 QT: 486 QTc: 430 Interpretive Statements Sinus bradycardia Electronically Signed On 05-22-2018 3:32:53 EST by Domingo Odonnell
[2018-05-22] MEDS: *HR* Heparin 5,000 UNIT/ML VIAL SQ SCH ×2 (05:37→12:41)
[2018-05-22] MEDS ORDERED: traMADol 50 MG TABLET PO PRN (07:48)
[2018-05-22] MEDS ORDERED: Aspirin Enteric Coated 81 MG Tablet PO SCH (09:00)
[2018-05-22] MEDS ORDERED: Cholecalciferol (D-3) 1,000 UNIT TABLET PO SCH ×2 (09:00→10:00)
[2018-05-22] MEDS ORDERED: Topiramate 25 MG TABLET PO SCH (09:00)
[2018-05-22] MEDS: Gabapentin 300 MG CAPSULE PO SCH ×2 (09:28→14:15)
[2018-05-22] MEDS ORDERED: 0.9 % Sodium Chloride 1,000 ML ONE (09:54)
[2018-05-22] MEDS ORDERED: Heparin 1,000 UNITS/500 mL 500 ML ONE (09:54)
[2018-05-22] MEDS ORDERED: *HR* Heparin 10,000 UNIT/10 ML VIAL ONE (09:55)
[2018-05-22] MEDS ORDERED: Nitroglycerin 1,000 MCG/10 ML VIAL IV ONE (09:55)
[2018-05-22] MEDS ORDERED: ISOVUE-370 200 ML INFUS..BTL ONE (09:55)
--- NOTE | 2018-05-22 10:21 | Cardiology Consult Note ---
<Anay Valdes - Last Filed: 05/22/18 10:40> Date of Encounter: 05/22/18 Time of Encounter: 08:30 Assessment and Plan (1) Unstable angina Current Visit: Yes Status: Acute Per cardiology: -Presented to outpatient cardiology office with unstable anginal symptoms. Referred to ER. -Troponins negative x3. -No acute ECG changes. -TTE pending. -Stress 08/2017 negative for ischemia or infarct. -TTE 09/2012 with LVEF 65%, mild diastolic dysfunction, small muscular VSD with left to right shunt, mildly dilated LA, mild TR, no wall motion abnormalities noted. -Reports current chest pain 6/10, however refusing nitroglycerin. -On asa, statin. Not on BB due to bradycardia. -Recommend nitro, patient refusing. -Discussed LHC with patient. Risks versus benefits of LHC explained to patient who states understanding and agreeable to proceed. However, patient wishes to wait until her family arrives prior to LHC. -Further recs pending LHC. (2) CAD (coronary artery disease) Current Visit: Yes Status: Chronic Per cardiology: -Last C 2012 with mild, non-obstructive CAD. -See unstable angina as above. Qualifiers: Coronary Disease-Associated Artery/Lesion type: [place] artery [place] vs. transplanted heart: [place] heart Associated angina: with unstable angina Qualified Code(s): I25.110 - Atherosclerotic heart disease of [place] coronary artery with unstable angina pectoris Discussion w patient/family: The assessment and plan as outlined above was discussed with the patient who expressed understanding and agreement. All questions were answered. Thank you for involving us in the care of your patient. Please call with any questions. Discussed and reviewed with History of Present Illness Consult date: 05/21/18 Requesting physician: Lina Gonzalez Consult reason: chest pain Chief complaint: chest pain History of present illness: Ms. Anthony is a 48 year old female with a relevant past medical history of hypothyroidism, diastolic CHF, asthma, obesity, HLD, Mild non-obstructive CAD, bradycardia, tremors, history of cervical cancer, who was at an outpatient visit with cardiology yesterday where she complained of 3 days of chest pain. Patient was referred to ER. Patient states chest pain started at rest and had been pretty much constant. Reports nitro helped some. Currently reports chest pain, rates 6/10. Non-radiating. Patient is refusing nitroglycerin. Reports shortness of breath about her baseline. Reports fatigue about baseline also. Past Med Surg Social Fam HX - Past Medical History Attestation: Yes The following information was validated with the patient. Source: patient, old records reviewed Medical history: asthma, coronary artery disease, hyperlipidemia, thyroid disease Psychiatric history: depression - Past Surgical History Surgical History: - Social History Smoking Status: Never smoker Smokeless Tobacco Status: No Alcohol use: none Drug use: none - Family History Father Family Member Ethnicity: Non- Living Status: Still Living Hx Family Cardiac Disorders: Yes Hx Family Respiratory Disorders: No Hx Family Cancer: No Hx Family GI Disorders: No Medications and Allergies Citalopram [CeleXA] 20 mg PO DAILY 06/30/17 [History] Ergocalciferol (VITAMIN D2) [Drisdol (50,000 Unit)] 50,000 units PO QWEEK 05/18 [History] Gabapentin [Neurontin] 300 mg PO TID 06/30/17 [History] Levothyroxine Sodium [Synthroid] 137 mcg PO QAM 06/30/17 [History] Omeprazole [PriLOSEC] 20 mg PO DAILY 06/30/17 [History] Pravastatin Sodium [Pravachol] 40 mg PO HS 06/30/17 [History] Torsemide 10 mg PO DAILY PRN MDD 10 06/30/17 [History] Topiramate [Topamax] 25 mg PO DAILY #30 tablet 07/04/17 [Rx] Meclizine HCl [Verticalm] 25 mg PO TID 05/21/18 [History] Tramadol HCl [Ultram] 50 mg PO TID PRN 05/21/18 [History] Allergy/AdvReac Type Severity Reaction Status Date / Time ciprofloxacin [From Cipro] Allergy Anaphylaxis Verified 06/30/17 15:52 hydromorphone [From Dilaudid] Allergy Anaphylaxis Verified 06/30/17 15:52 morphine Allergy Anaphylaxis Verified 05/21/18 13:58 Sulfa (Sulfonamide Allergy Itching Verified 06/30/17 15:52 Antibiotics) primidone AdvReac Agitated Verified 07/03/17 13:25 All Systems Review: The remainder of the systems were reviewed and are negative - Cardiovascular Cardiovascular: as per HPI, chest pain at rest Physical Examination Vital Signs, Last 4 Hours Temp Pulse Resp BP Pulse Ox 05/22/18 06:54 97.7 F 44 20 112/71 96 General: Conversant, No Apparent Distress HEENT: Atraumatic, Normocephaly, Mucus Membranes Moist Neck: No JVD, Normal carotid pulses Cardiac: Reg Rate and Rhythm, Normal S1 and S2, No Murmur Lungs: Normal Breath Sounds, No Wheeze, Rales, Rhonchi Neuro: Alert and responsive, No focal deficits noted Abdomen: Soft, Non-Tender Skin: No rashes noted on visualized skin Musculoskeletal: No Chest Wall Tenderness Extremities: No Clubbing, No Cyanosis, No Edema, Normal Pulses Results 05/22/18 00:53 05/22/18 00:53 Lab Results Impressions Chest X-Ray 05/21/18 13:34 IMPRESSION: No acute abnormality. D/ / Eric Walsh MD / Eric Walsh MD Interpreting Provider: Eric Walsh MD Active Medications Acetaminophen (Tylenol) 650 mg PO Q6HR PRN PRN Reason: Mild Pain/Fever Stop: 11/20/18 15:16 Albuterol/Ipratropium (Duoneb) 3 ml IH Q6H PRN PRN Reason: Dyspnea Stop: 11/20/18 15:46 Aspirin (Aspirin Ec) 81 mg PO DAILY SLOAN Stop: 11/21/18 09:01 Last Admin: 05/22/18 09:28 Dose: 81 mg Atorvastatin Calcium (Lipitor) 20 mg PO HS SLOAN Stop: 11/20/18 21:01 Last Admin: 05/21/18 21:53 Dose: 20 mg Citalopram Hydrobromide (Celexa) 20 mg PO DAILY SLOAN Stop: 11/21/18 09:01 Last Admin: 05/22/18 09:28 Dose: 20 mg Gabapentin (Neurontin) 300 mg PO TID SLOAN Stop: 11/20/18 21:01 Last Admin: 05/22/18 09:28 Dose: 300 mg Heparin Sodium (Porcine) (Heparin) 5,000 unit SQ Q8HCO SLOAN Stop: 11/20/18 22:01 Last Admin: 05/22/18 05:37 Dose: 5,000 unit Nitroglycerin (Nitroglycerin Premix 25 Mg/250 Ml) 25 mg in 250 mls @ 3 mls/hr IVC .Q24H [facility]; Protocol Stop: 11/20/18 14:31 Last Titration: 05/21/18 23:27 Dose: 0 mcg/min, 0 mls/hr Levothyroxine Sodium (Levothyroxine Sodium) 137 mcg PO 0630 [facility] Stop: 11/21/18 06:31 Last Admin: 05/22/18 05:37 Dose: 137 mcg Meclizine HCl (Antivert) 25 mg PO TID PRN PRN Reason: Vertigo Stop: 11/20/18 21:01 Naloxone HCl (Narcan) 0.4 mg IVP Q2M PRN PRN Reason: SEE COMMENTS Stop: 11/20/18 15:16 Nitroglycerin (Nitroglycerin) 0.4 mg SL Q5M PRN PRN Reason: Chest Pain Stop: 11/20/18 13:35 Last Admin: 05/21/18 13:49 Dose: 0.4 mg Omeprazole (Prilosec) 20 mg PO DAILY@0730 [facility]; Protocol Stop: 11/21/18 07:31 Last Admin: 05/22/18 09:28 Dose: 20 mg Topiramate (Topamax) 25 mg PO DAILY [facility] Stop: 11/21/18 09:01 Last Admin: 05/22/18 09:28 Dose: 25 mg Tramadol HCl (Ultram) 50 mg PO TID PRN PRN Reason: Moderate Pain Stop: 11/20/18 18:40 Vitamin D (Vitamin D) 1,000 unit PO DAILY [facility] Stop: 11/21/18 10:01 Laboratory Tests 05/21/18 05/21/18 05/22/18 13:41 18:59 00:53 Hgb Creatinine Troponin I < 0.03 < 0.03 < 0.03 05/22/18 05/22/18 00:53 00:53 Hgb 12.7 Creatinine 0.68 Troponin I - Imaging and Cardiology Chest Xray: report reviewed Stress Test: report reviewed Echo: pending, report reviewed Cardiac cath: report reviewed - EKG Interpretation EKG results cardiology: personally reviewed (ECG with SB, non-specific T wave abnormalities, similar to baseline.), other (Telemetry reviewed with average HR previous 12 hours noted to be 51, SB. PVCs noted.) Consult Discharge Plan - Plan Referrals: Harvey Huitron MD [Primary Care Provider] - 05/29/18 3:00 pm (Please follow up as schedule...) <Kelly Jack - Last Filed: 05/22/18 12:33> Date of Encounter: 05/22/18 - Attending Attestation Patient was seen and evaluated independently by me. Findings, assessment and cyndi n were discussed at length with patient, questions answered. Agree with nurse practitioner's/resident's documentation. Addition as follows, 48 yoCF ho mild CAD, HLD, hypothyroidism, asthma, migraine. P/w recurrent typical and atypical chest pain 3 days, accelerating, relief on NTG. ECG nonischemic. trop neg. SPECT no ischemia or infarct. TTE 2012 preserved EF, question of small muscular VSD without chamber dilatation. VSS, CTA, RR, no LE edema. A: Accelerating angina clinically Ho mild CAD 2012 P: C TTE pending ASA, statin Kelly Jack MD, PhD Assessment and Plan Discussion w patient/family: The assessment and plan as outlined above was discussed with the patient and/or family members who expressed understanding and agreement. All questions were answered. Thank you for involving us in the care of your patient. Please call with any questions. History of Present Illness History of present illness: Ms. Anthony is a 48 year old female All Systems Review: The remainder of the systems were reviewed and are negative Physical Examination Vital Signs, Last 4 Hours Pulse Resp BP Pulse Ox 05/22/18 11:54 47 14 115/72 95 05/22/18 11:37 49 14 116/67 96 Results 05/22/18 00:53 05/22/18 00:53 Lab Results 05/21/18 05/21/18 05/21/18 13:41 13:41 18:59 WBC 7.7 Hgb 13.1 Hct 39.7 Plt Count 203 Sodium 139 Potassium 3.7 Chloride 106 Carbon Dioxide 27 BUN 18 Creatinine 0.83 Glucose 90 Calcium 9.2 Magnesium Troponin I < 0.03 < 0.03 05/22/18 05/22/18 05/22/18 00:53 00:53 00:53 WBC 8.5 Hgb 12.7 Hct 38.7 Plt Count 187 Sodium 135 L Potassium 3.7 Chloride 109 H Carbon Dioxide 23 BUN 15 Creatinine 0.68 Glucose 90 Calcium 9.0 Magnesium 2.2 Troponin I < 0.03
[2018-05-22] MEDS ORDERED: *HR* Midazolam HCl 2 MG/2 ML VIAL ONE (10:30)
[2018-05-22] MEDS ORDERED: *HR* FentaNYL (PF) 100 MCG/2 ML VIAL ONE (10:31)
--- NOTE | 2018-05-22 10:42 | Pre-Sedation Evaluation ---
Pre-sedation evaluation - Pre-sedation checklist Date of procedure: 05/22/18 Procedure: [facility] Recent Vitals: Last Vital Signs Temp 97.7 F 05/22/18 06:54 Pulse 44 05/22/18 06:54 Resp 20 05/22/18 06:54 BP 112/71 05/22/18 06:54 Pulse Ox 96 05/22/18 06:54 H&P (including ROS) documented in medical record: Yes Previous reaction to sedatives/anesthetics: No Dietary Status: NPO after Midnight Airway Assessment: Patient can open mouth completely, TMJ function normal, Micrognathia (under-bite, receding chin) absent, Neck with adequate range of mot ion Dentition: No loose teeth or bridges Possible difficult airway: No ASA Classification *see protocol: CLASS II-Mild systemic disease Plan of Care: Pt appropriate candidate for procedure/moderate/conscious sedation, Risks/benefits of procedure/sedation discussed w/ patient/family Cardiac Registry (Cardio Only) - Functional Capacity Functional Capacity: < 4 METS - Clincal Frailty Scale Clinical Frailty Scale: Vulnerable
--- NOTE | 2018-05-22 11:18 | Event Note ---
Date of Encounter: 05/22/18 Time of Encounter: 11:17 - Cardiology Event Note Discussed and reviewed with Dr.Jennifer Bell [facility] with angiographically normal coronaries. LVEF 60%, no wall motion abnormalities noted. Recommend work up for non-cardiac chest pain. Cardiology will sign off.
--- NOTE | 2018-05-22 11:24 | Invasive Diagnostic Lab Proc ---
Name: Tom Anthony Date of Study: 05/22/2018 Date: 1970 Ht: 70.1in Medical Record#: [id number] Age: 48 Wt: 266.76lb Gender: Female BSA: 2.36 Order #: [id number] BMI: 38.19 Physicians Procedure Physician: Janet Bell MD, FACC Referring MD: Referring MD: Staff Name Position Time In Ari Porter RN Photo Specialist 10:41 AM Heaven Reynaga RT Scrub 10:41 AM Rosa Elena Rivera RN Monitor 10:41 AM Apple Lopez RT (R) RT 10:41 AM Indications Indication Unstable Angina Procedures Performed Procedure L HRT ARTERY/VENTRICLE ANGIO Pre-Procedure Checklist Informed consent is complete signed and on chart. H&P is on chart. ID band is on and ID verified with patient. Patient NPO for procedure The procedure was described for the patient and questions were answered. Blood Pressure: 112/71 ECG is on chart. Rhythm: NSR Plan of Care Patient will tolerate the procedure without complications. Adequate level of comfort will be maintained. Hemodynamics will remain stable Patient will recover from procedure without complications. Respiratory function will be maintained. Cardiac rhythm will remain stable. Patient temperature will be maintained. Patient and/or family have verbalized understanding of the procedure. Patient Education Intravenous Access Time IV Size Location DC'd Fluid/Drip Rate Units RN 10:43 AM 20g 1 1/" Patent On Arrival Rt Antecubital 0.9NaCl 25 ml/hr Ari Porter RN Allergies morphine SULFA (sulfonamide) hydromorphone *HR* Dilaudid SULFA,CIPROFLOXACIN primidone SULFA ciprofloxacin Dilaudid Sulfa (Sulfonamide Antibiotics) SULFA-RASH LMP-1-28 SULFA, STATES ANOTHER ANTIBIOTIC WELL Vital Signs Time BP (mmHg) HR (bpm) O2 Sat. RR (bpm) LOC 10:41 AM 112 / 71 44 20 % 16 5 = Fully awake and oriented or at pre-proc level 10:41 AM / % 4 = Oriented but drowsy 10:44 AM 149 / 90 46 100 % 21 10:49 AM 131 / 83 56 99 % 17 10:59 AM 140 / 82 71 100 % 17 10:56 AM / % 4 = Oriented but drowsy Procedural Medications Time Medication Dose Units Method Given By 10:41 AM Oxygen 2 L/min nasal cannula Ari Porter RN 10:45 AM Versed 2 mg Intravenous Ari Porter RN 10:45 AM Benadryl 25 mg Intravenous Ari Porter RN 10:54 AM Lidocaine 2% 18 ml Subcutaneous Janet Bell MD, [facility] 10:58 AM Nitroglycerin 200 mcg Intracoronary Janet Bell MD, [facility] ASA Classification: CLASS II- Mild systemic disease (i.e. well-controlled diabetes, hypertension, asthma, cigarette smoking) Kim Score Preprocedure Postprocedure Activity 2- Moves 4 extremities sustained head lift Activity Circulation 2- SBP +/= 20 points of pre-anesthetic level Circulation Consciousness 2- Awake and alert oriented x 3 Consciousness O2 Saturation 2- Able to maintain O2 satruation of 92% on room air O2 Saturation Respiratory 2- Able to deep breathe and cough well Respiratory Total Score 10 Total Score Contrast Agent: Isovue Diagnostic Contrast: 58 ml Total Contrast: 58 ml Fluoro Dose: 3032 mGy Procedure Log Time Note Enter By 10:37 AM 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 Informed consent was obtained. [email or web address] 10:41 AM Procedure start 10:40 kkall 10:41 AM Time: 10:41 Patient comfortable and pain free: Yes [email or web address] 10:41 AM Time: 10:41LOC: 5 = Fully awake and oriented or at pre-proc level [email or web address] 10:41 AM Time: 10:41 Oxygen on at 2 L/min per nasal cannula by Ari Porter RN [email or web address] 10:41 AM Ari Porter RN Position: Photo Specialist Time in: : [email or web address] 10:41 AM Heaven Reynaga RT Position: Scrub Time in: : [email or web address] 10:41 AM Rosa Elena Rivera RN Position: Monitor Time in: : [email or web address] 10:41 AM Apple Lopez RT (R) Position: RT Time in: 10: [email or web address] 10:42 AM Patient charges- Angio tray pack, Navilyst 3mm J, Pulse Oximetry and ACIST tubing and transducer [email or web address] 10:42 AM Case Delayed no [email or web address] 10:42 AM Hair removed from procedure site in procedure lab using clippers. Bilateral groin prepped with Chloraprep by Apple Lopez (R), then patient was draped. Skin intact. [email or web address] 10:42 AM CathStat 10:42 AM Vitals capture started with the following parameters, Patient=Adult, Interval=5 min, Initial Jtlsnbqt=557 mmHg, Deflation Rate=5 mmHg, Cuff placed on Right Arm 10:43 AM Clinical Presentation: Unstable angina [email or web address] 10:44 AM HR=46 bpm, VZRM=634/90 mmhg, NpO7=119.0 %, Resp=21 B/min, Comment=nsr 10:45 AM Time: 10:45 Versed 2 mg Intravenous Given by Ari Porter RN [email or web address] 10:45 AM Time: 10:45 Benadryl 25 mg Intravenous Given by Ari Porter RN [email or web address] 10:49 AM HR=56 bpm, AMHV=465/83 mmhg, SpO2=99.0 %, Resp=17 B/min, Comment=nsr 10:52 AM ASA Class CLASS II- Mild systemic disease (i.e. well-controlled diabetes, hypertension, asthma, cigarette smoking) [email or web address] 10:53 AM Time out was performed according to hospital policy. Conscious sedation and anesthesia was achieved (see medication log with in this report above) [email or web address] 10:54 AM Time: 10:54 18 ml Lidocaine 2% to right groin Subcutaneous Given by Janet Bell MD, [facility] [email or web address] 10:54 AM Vitals capture stopped. 10:56 AM Access obtained by percutaneous puncture. 5Fr 10cm Terumo [place] sheath placed in right Femoral artery. [id number] [email or web address] 10:56 AM 5Fr FL 4 catheter inserted over the wire DNC [email or web address] 10:56 AM Time: 10:41 Patient comfortable and pain free: Yes [email or web address] 10:56 AM Time: 10:41LOC: 4 = Oriented but drowsy [email or web address] 10:57 AM Recorded Pressure: Ao, HR=49, Condition=Condition 1 (Aorta) Ao 129/80/100 10:57 AM NIBP STAT measurement started. 10:57 AM LCA angiography performed in multiple views. [email or web address] 10:58 AM Time: 10:58 Nitroglycerin 200 mcg Intracoronary Given by Janet Bell MD, [facility] 10:58 AM Catheter removed 10:59 AM 5Fr FR 4 catheter inserted over the wire [facility] 10:59 AM HR=71 bpm, PJST=469/82 mmhg, OpR6=059.0 %, Resp=17 B/min, EtCO2=38 mmHg, Comment=nsr 10:59 AM Recorded Pressure: Ao, HR=70, Condition=Condition 1 (Aorta) Ao 136/97/115 11:00 AM RCA angiography performed in multiple views. 11:00 AM Catheter removed 11: AM 5Fr Pigtail catheter inserted over the wire [facility] 11: AM Catheter crossed the aortic valve and was selectively placed in the left ventricle. Pressures recorded on pullback for left heart catheterization. 11:01 Bolus angiogram of left Ventricle complete: 8 ml/sec for a total of 24 mls : Pressure channel 1 zeroed. 11:01 AM Recorded Pressure: LV, HR=66, Condition=Condition 1 (Left Ventricle) LV 142/-13/1 11:02 AM Recorded Pressure: LV, Ao, HR=64, Condition=Condition 1 (Left Ventricle) LV 115/4/7, (Aorta) Ao 115/77/95 11:02 AM Catheter removed 11:02 physician reviewing films 11:03 Coronary Dominance: right 11:03 AM Procedure completed at 11:03 05/22/2018 11:03 AM Did you address ANTONIO flow and Dominance? Yes 11:04 Sign out completed: Radiation Dose 287 mGy, 3032 cGy/cm2 Fluoro Time: 1.2 Isovue 370 - 200ml contrast 58 ml given by Janet Bell MD, [facility]. Complications: None. The patient was discharged out of the lab scientist in stable condition. Sedation minutes 19. Cardiac Rehab Consult needed: No. Confirmed administered medications: Yes 11:04 AM Isovue 370 - 200ml,1 Bottle(s) used. kk 11:04 AM Arterial sheath pulled, Mynx closure device used and was Successful [id number] S/N. 11:04 AM Estimated Blood Loss: minimal [email or web address] 11:04 AM Post ECG NSR [email or web address] 11:04 AM Post Blood Pressure 140/82 [email or web address] 11:04 AM 11:04 Post Pulses Bilateral DP & PT 2+ [email or web address] 11:08 AM Information taught Cardiac Cath and Mynx [email or web address] 11:08 AM Education needs Procedure, Plan of Care, and Responsibilities of Patient in Care [email or web address] 11:08 AM Learning barriers :None [email or web address] 11:08 AM Education Methods Verbal [email or web address] 11:08 AM Education evaluation Able to repeat information [email or web address] 11:08 AM Site status No bleeding/hematoma - Rt Groin as reported by Heaven Reynaga RT at 11:08 [email or web address] 11:08 AM Opsite applied [email or web address] 11:09 AM Plavix, Effient or Brilinta given No [email or web address] 11:09 AM Delay to floor No [email or web address] 11:10 AM no family here at this time [email or web address] 11:11 AM Time: 10:56LOC: 4 = Oriented but drowsy [email or web address] 11:11 AM Time: 10:56 Patient comfortable and pain free: Yes [email or web address] 11:11 AM Report given to Madeline SAAVEDRA Pt taken to 2A Room #47. 11:11 [email or web address] 11:12 AM Patient out of room: 11:12 [email or web address] 11:12 AM Complications: None [email or web address] Complications Complication None None Hemodynamics Pressures Site Systolic/A Wave Diastolic/V Wave Mean AO 129 80 100 AO 136 97 115 LV 142 -13 1 LV 115 4 7 AO 115 77 95 Post Procedure Information Blood Pressure: 140/82 mmHg Rhythm: NSR Post procedural instructions were given Closure Device Time Device Success/Fail 05/22/2018 11:11:00 AM MynxGrip Successful Site Checks Time Location Status Staff Sheath In? Note 11:08 AM Rt Groin No bleeding/hematoma Heaven Reynaga RT Pulses Time Site Pre-Procedure Post-Procedure Note 05/22/2018 10:37:00 AM Bilateral DP & PT 2+ 05/22/2018 10:43:00 AM Bilateral radial 2+ 11:04:00 AM Bilateral DP & PT 2+ Updated by Heaven Reynaga, RT (R) on 05/22/2018 11:16:58 AM electronically signed on 05/22/2018 11:17:49 AM with status of Final
--- NOTE | 2018-05-22 12:27 | Discharge Summary ---
- NOTES TO OUTPATIENT PROVIDER Notes to Outpatient Provider: Chest pain likely musculoskeletal, left heart cath was negative Orders not resulted at time of discharge: Pending orders 05/21/18 19:00 ECG 12 lead ECG [ECG] Q6H 05/22/18 00:53 TSH Receptor Antibody AM 0400 05/22/18 01:00 ECG 12 lead ECG [ECG] Q6H 05/22/18 09:48 CL Cardiac Catheterization [CL] Routine Date of Encounter: 05/22/18 Time of Encounter: 12:24 - Discharge Diagnosis (1) Costochondritis Priority: Primary Status: Acute (2) Angina at rest Priority: Primary Status: Ruled-out (3) Bradycardia Priority: Secondary Status: Chronic (4) Mood disorder Priority: Secondary Status: Chronic (5) Hypothyroid Priority: Secondary Status: Chronic Qualifiers: Hypothyroidism type: acquired Qualified Code(s): E03.9 - Hypothyroidism, unspecified (6) GERD (gastroesophageal reflux disease) Priority: Secondary Status: Chronic Qualifiers: Esophagitis presence: without esophagitis Qualified Code(s): K21.9 - Gastro-esophageal reflux disease without esophagitis (7) HLD (hyperlipidemia) Priority: Secondary Status: Chronic Qualifiers: Hyperlipidemia type: mixed hyperlipidemia Qualified Code(s): E78.2 - Mixed hyperlipidemia Hospital course: Ms. Anthony is a 48 year old female with history of coronary disease presented with chest pain. She was being seen by her relations coordinator and was experiencing chest pain so was admitted for chest pain. Cardiology saw the patient and patient underwent left heart catheterization this morning that revealed normal coronary arteries. On my evaluation patient was tender to palpation at the left third costochondral junction. Her chest pain is most likely musculoskeletal in nature. I recommended Tylenol for pain relief and did recommend that she avoid NSAIDs due to her history of coronary disease. Patient will be discharged home in stable condition. Discharge discussed with: patient - Time Spent with Patient Total time spent providing and/or coordinating discharge services: - Discharge Medications Prescriptions: New Acetaminophen [Tylenol] 650 mg PO Q6HR PRN tablet PRN Reason: Mild Pain/Fever Aspirin Enteric Coated [Aspirin EC] 81 mg PO DAILY tablet.dr Continue Pravastatin Sodium [Pravachol] 40 mg PO HS Levothyroxine Sodium [Synthroid] 137 mcg PO QAM Ergocalciferol (VITAMIN D2) [Drisdol (50,000 Unit)] 50,000 units PO QWEEK Torsemide 10 mg PO DAILY PRN MDD 10 PRN Reason: edema Omeprazole [PriLOSEC] 20 mg PO DAILY Gabapentin [Neurontin] 300 mg PO TID Citalopram [CeleXA] 20 mg PO DAILY Topiramate [Topamax] 25 mg PO DAILY #30 tablet Meclizine HCl [Verticalm] 25 mg PO TID Tramadol HCl [Ultram] 50 mg PO TID PRN PRN Reason: Pain Home Medications: Citalopram [CeleXA] 20 mg PO DAILY 06/30/17 [History] Ergocalciferol (VITAMIN D2) [Drisdol (50,000 Unit)] 50,000 units PO QWEEK 06/30/17 [History] Gabapentin [Neurontin] 300 mg PO TID 06/30/17 [History] Levothyroxine Sodium [Synthroid] 137 mcg PO QAM 06/30/17 [History] Omeprazole [PriLOSEC] 20 mg PO DAILY 06/30/17 [History] Pravastatin Sodium [Pravachol] 40 mg PO HS 06/30/17 [History] Torsemide 10 mg PO DAILY PRN MDD 10 06/30/17 [History] Topiramate [Topamax] 25 mg PO DAILY #30 tablet 07/04/17 [Rx] Meclizine HCl [Verticalm] 25 mg PO TID 05/21/18 [History] Tramadol HCl [Ultram] 50 mg PO TID PRN 05/21/18 [History] Acetaminophen [Tylenol] 650 mg PO Q6HR PRN tablet 05/22/18 [Rx] Aspirin Enteric Coated [Aspirin EC] 81 mg PO DAILY tablet. 05/22/18 [Rx] Allergies/Adverse Reactions: Allergy/AdvReac Type Severity Reaction Status Date / Time ciprofloxacin [From Cipro] Allergy Anaphylaxis Verified 06/30/17 15:52 hydromorphone [From Dilaudid] Allergy Anaphylaxis Verified 06/30/17 15:52 morphine Allergy Anaphylaxis Verified 05/21/18 13:58 Sulfa (Sulfonamide Allergy Itching Verified 06/30/17 15:52 Antibiotics) primidone AdvReac Agitated Verified 07/03/17 13:25 Date of admission: 05/21/18 14:48 Primary care physician: Harvey Huitron MD Consults: 05/21/18 14:22 Consult to Cardiology [CONS] Stat Comment: Consulting Provider: Cardiology Izabela Reason for Consult: Chest pain/Known patient Call Completed: Yes Discharging clinician: Rome Galvez Anticipated date of discharge: 05/22/18 - Constitutional Vitals: Temp Pulse Resp BP Pulse Ox 97.7 F 47 14 115/72 95 05/22/18 06:54 05/22/18 11:54 05/22/18 11:54 05/22/18 11:54 05/22/18 11:54 General appearance: Present: A&O X 3, no acute distress Exam: . - Respiratory Respiratory exam: Present: chest wall tenderness (Left third costochondral junction), CTAB. Absent: rales, rhonchi, wheezes - Cardiovascular Cardiovascular exam: Present: bradycardia. Absent: gallop, irregular rhythm, rubs, systolic murmur - Patient Status Disposition: Home, Self-Care Condition: Fair Functional capacity at discharge: independent ambulation Overall status at discharge: patient is progressing back to baseline - Discharge Instructions Follow Up With: Harvey Huitron MD [Primary Care Provider] - 05/29/18 3:00 pm (Please follow up as schedule...) Additional Instructions: Follow-up with your primary care provider as scheduled. Please resume your home medications. Please take Tylenol as needed for chest pain. If chest pain becomes worse or changes in nature please seek medical attention. Please return for any new or worsening symptoms. - Diet and Activity Activity: increase activity as tolerated Diet: low salt diet
[2018-05-22] MEDS: Nitroglycerin 25 MG/250 ML INFUS..BTL IVC SCH (13:58)
[2018-05-22 16:26] VITALS: BP 121/76
== END 2018-05-22 18:00 | disposition home or self-care (01) ==
LOC: EMEROOARM 13:16 → 2ANU 13:16 → SUATTDRO 14:48 → 2ANU 15:09
PROVIDERS: ADMIT Internal Medicine; ATTEND Internal Medicine